=== PATIENT | female | born 1950 | race Caucasian/White ===

== ENCOUNTER 2017-01-05 02:19 | Inpatient (IN) | payer BC ==
[2017-01-05] MEDS ORDERED: Sodium Chloride 0.9% 1,000 ML IV ONE (02:27)
[2017-01-05] MEDS ORDERED: Sodium Chloride 0.9% 10 ML Syringe FLUSH PRN (02:27)
[2017-01-05] MEDS ORDERED: Sodium Chloride 0.9% 2.5 ML Syringe FLUSH PRN (02:27)
[2017-01-05] MEDS ORDERED: Ondansetron 4 MG/2 ML SDV IVPUSH ONE (02:27)
--- NOTE | 2017-01-05 02:30 | EDM.PDOC ---
ED HPI GENERAL MEDICAL PROBLEM - General Stated Complaint: FEELING WEAK Time Seen by Provider: 01/05/17 02:26 - History of Present Illness INITIAL COMMENTS - FREE TEXT/NARRATIVE: HISTORY AND PHYSICAL: History of present illness: Patient 66-year-old white female who presents with certain generalized weakness she states she had anorexia has had no appetite and has been taking minimal fluid she also feels dehydrated this time she denies chest pain abdominal pain nausea vomiting fever chills or other concerns she is seeing her physician for this and is here tonight because she just feels like she can't take it anymore Review of systems: As per history of present illness and below otherwise all systems reviewed and negative. Past medical history: As per history of present illness and as reviewed below otherwise noncontributory. Surgical history: As per history of present illness and as reviewed below otherwise noncontributory. Social history: No reported history of drug or alcohol abuse. Family history: As per history of present illness and as reviewed below otherwise noncontributory. Physical exam: HEENT: Atraumatic, normocephalic, pupils reactive, negative for conjunctival pallor or scleral icterus, mucous membranes dry, throat clear, neck supple, nontender, trachea midline. Lungs: Clear to auscultation, breath sounds equal bilaterally, chest nontender. Heart: S1S2, regular, negative for clicks, rubs, or JVD. Abdomen: Soft, nondistended, nontender. Negative for masses or hepatosplenomegaly. Negative for costovertebral tenderness. Pelvis: Stable nontender. Genitourinary: Deferred. Rectal: Deferred. Extremities: Atraumatic, negative for cords or calf pain. Neurovascular unremarkable. Neuro: Awake, alert, oriented. Cranial nerves II through XII unremarkable. Cerebellum unremarkable. Motor and sensory unremarkable throughout. Exam nonfocal. Diagnostics: CBC CMP troponin PT INR lactic acid lipase chest x-ray CT abdomen and pelvis UA ammonia level Therapeutics: Normal saline 1 L bolus Zofran 4 mg IV Impression: #1 anorexia #2 generalized weakness #3 dehydration Definitive disposition and diagnosis as appropriate pending reevaluation and review of above. - Related Data Allergies Allergy/AdvReac Type Severity Reaction Status Date / Time No Known Allergies Allergy Verified 01/05/17 02:39 Home Meds: Home Meds Hydrocodone/Acetaminophen [Hydrocodon-Acetaminophen 5-325] 1 mg PO ASDIRECTED [History] Ondansetron HCl [Zofran] 4 mg PO TID 01/05/17 [History] Ranitidine [Zantac] 150 mg PO BID 01/05/17 [History] ED ROS GENERAL - Review of Systems Review Of Systems: ROS reveals no pertinent complaints other than HPI. ED EXAM, GENERAL - Physical Exam Exam: See Below (See dictation) Course - Vital Signs Last Recorded V/S: Last Vital Signs Temp 36.2 C 01/05/17 06:37 Pulse 93 01/05/17 06:37 Resp 24 H 01/05/17 06:37 BP 110/62 01/05/17 06:37 Pulse Ox 94 L 01/05/17 06:37 - Orders/Labs/Meds Orders: Active Orders 24 hr Category Date Time Status Cardiac Monitoring [RC] . DIRECTED Care 01/05/17 02:26 Active EKG Documentation Completion [RC] STAT Care 01/05/17 02:26 Active Pulse Oximetry [RC] ASDIRECTED Care 01/05/17 02:26 Active RT Aerosol Therapy [RC] ASDIRECTED Care 01/05/17 03:04 Active Abdomen Pelvis wo Cont [CT] Stat Exams 01/05/17 02:27 Taken Chest 2V [CR] Stat Exams 01/05/17 02:27 Taken CULTURE BLOOD [BC] Stat Lab 01/05/17 03:15 Received CULTURE BLOOD [BC] Stat Lab 01/05/17 04:10 Received CULTURE URINE [RM] Stat Lab 01/05/17 06:39 Received DRUG SCREEN, URINE [URCHEM] Stat Lab 01/05/17 06:39 Received UA W/MICROSCOPIC [URIN] Stat Lab 01/05/17 06:39 Received Sodium Chloride 0.9% [Saline Flush] Med 01/05/17 02:27 Active 10 ml FLUSH ASDIRECTED PRN Sodium Chloride 0.9% [Saline Flush] Med 01/05/17 02:27 Active 2.5 ml FLUSH ASDIRECTED PRN Blood Culture x2 Reflex Set [OM.PC] Stat Oth 01/05/17 03:00 Ordered Saline Lock Insert [OM.PC] Stat Oth 01/05/17 02:26 Ordered Medication Orders Sodium Chloride (Saline Flush) 10 ml FLUSH ASDIRECTED PRN PRN Reason: Keep Vein Open Last Admin: 01/05/17 02:41 Dose: 10 ml Sodium Chloride (Saline Flush) 2.5 ml FLUSH ASDIRECTED PRN PRN Reason: Keep Vein Open Last Admin: 01/05/17 02:41 Dose: 2.5 ml Labs: Laboratory Tests 01/05/17 01/05/17 01/05/17 Range/Units 02:39 02:39 02:39 WBC 18.51 H (4.0-11.0) K/uL RBC 4.50 (4.30-5.90) M/uL Hgb 12.6 (12.0-16.0) g/dL Hct 37.6 (36.0-46.0) % MCV 83.6 (80.0-98.0) fL MCH 28.0 (27.0-32.0) pg MCHC 33.5 (31.0-37.0) g/dL RDW Std Deviation 41.8 (28.0-62.0) fl RDW Coeff of Edy 14 (11.0-15.0) % Plt Count 377 (150-400) K/uL MPV 10.00 (7.40-12.00) fL Neut % (Auto) 74.0 (48.0-80.0) % Lymph % (Auto) 12.2 L (16.0-40.0) % [place] % (Auto) 13.6 (0.0-15.0) % Eos % (Auto) 0.0 (0.0-7.0) % Baso % (Auto) 0.2 (0.0-1.5) % Neut # (Auto) 13.7 H (1.4-5.7) K/uL Lymph # (Auto) 2.3 (0.6-2.4) K/uL [place] # (Auto) 2.5 H (0.0-0.8) K/uL Eos # (Auto) 0.0 (0.0-0.7) K/uL Baso # (Auto) 0.0 (0.0-0.1) K/uL Nucleated RBC % 0.0 /100WBC Nucleated RBCs # 0 K/uL INR (0.86-1.11) ABG pH (7.35-7.45) ABG pCO2 (35-45) mmHG ABG pO2 (75-100) mmHG ABG HCO3 (22-26) mEq/L ABG Total CO2 ABG Base Excess (-2.0-2.0) Lactate (0.20-2.00) mmol/L Sodium 133 L (136-146) mmol/L Potassium 4.1 (3.5-5.1) mmol/L Chloride 98 (98-110) mmol/L Carbon Dioxide 23 (21-31) mmol/L BUN 19 (6.0-23.0) mg/dL Creatinine 1.3 (0.6-1.5) mg/dL Est Cr Clr Drug Dosing 34.28 mL/min Estimated GFR (MDRD) 41.2 ml/min Glucose 141 H (60-110) mg/dL Calcium 9.6 (8.8-10.8) mg/dL Total Bilirubin 0.8 (0.1-1.5) mg/dL AST 50 H (5-40) IU/L ALT 51 (8-54) IU/L Alkaline Phosphatase 92 (40-150) Ammonia (14-68) UG/DL Troponin I (0.0-0.29) NG/ML B-Natriuretic Peptide 145 H (<100) PG/ML Total Protein 8.1 H (6.0-8.0) g/dL Albumin 3.5 (3.4-4.8) g/dL Globulin 4.6 H (2.0-3.5) g/dL Albumin/Globulin Ratio 0.8 L (1.3-2.8) Lipase 20 (7-80) U/L 01/05/17 01/05/17 01/05/17 Range/Units 02:39 02:39 02:39 WBC (4.0-11.0) K/uL RBC (4.30-5.90) M/uL Hgb (12.0-16.0) g/dL Hct (36.0-46.0) % MCV (80.0-98.0) fL MCH (27.0-32.0) pg MCHC (31.0-37.0) g/dL RDW Std Deviation (28.0-62.0) fl RDW Coeff of Edy (11.0-15.0) % Plt Count (150-400) K/uL MPV (7.40-12.00) fL Neut % (Auto) (48.0-80.0) % Lymph % (Auto) (16.0-40.0) % [place] % (Auto) (0.0-15.0) % Eos % (Auto) (0.0-7.0) % Baso % (Auto) (0.0-1.5) % Neut # (Auto) (1.4-5.7) K/uL Lymph # (Auto) (0.6-2.4) K/uL [place] # (Auto) (0.0-0.8) K/uL Eos # (Auto) (0.0-0.7) K/uL Baso # (Auto) (0.0-0.1) K/uL Nucleated RBC % /100WBC Nucleated RBCs # K/uL INR 1.09 (0.86-1.11) ABG pH (7.35-7.45) ABG pCO2 (35-45) mmHG ABG pO2 (75-100) mmHG ABG HCO3 (22-26) mEq/L ABG Total CO2 ABG Base Excess (-2.0-2.0) Lactate 1.2 (0.20-2.00) mmol/L Sodium (136-146) mmol/L Potassium (3.5-5.1) mmol/L Chloride (98-110) mmol/L Carbon Dioxide (21-31) mmol/L BUN (6.0-23.0) mg/dL Creatinine (0.6-1.5) mg/dL Est Cr Clr Drug Dosing mL/min Estimated GFR (MDRD) ml/min Glucose (60-110) mg/dL Calcium (8.8-10.8) mg/dL Total Bilirubin (0.1-1.5) mg/dL AST (5-40) IU/L ALT (8-54) IU/L Alkaline Phosphatase (40-150) Ammonia 40 (14-68) UG/DL Troponin I (0.0-0.29) NG/ML B-Natriuretic Peptide (<100) PG/ML Total Protein (6.0-8.0) g/dL Albumin (3.4-4.8) g/dL Globulin (2.0-3.5) g/dL Albumin/Globulin Ratio (1.3-2.8) Lipase (7-80) U/L 01/05/17 01/05/17 Range/Units 02:39 03:53 WBC (4.0-11.0) K/uL RBC (4.30-5.90) M/uL Hgb (12.0-16.0) g/dL Hct (36.0-46.0) % MCV (80.0-98.0) fL MCH (27.0-32.0) pg MCHC (31.0-37.0) g/dL RDW Std Deviation (28.0-62.0) fl RDW Coeff of Edy (11.0-15.0) % Plt Count (150-400) K/uL MPV (7.40-12.00) fL Neut % (Auto) (48.0-80.0) % Lymph % (Auto) (16.0-40.0) % [place] % (Auto) (0.0-15.0) % Eos % (Auto) (0.0-7.0) % Baso % (Auto) (0.0-1.5) % Neut # (Auto) (1.4-5.7) K/uL Lymph # (Auto) (0.6-2.4) K/uL [place] # (Auto) (0.0-0.8) K/uL Eos # (Auto) (0.0-0.7) K/uL Baso # (Auto) (0.0-0.1) K/uL Nucleated RBC % /100WBC Nucleated RBCs # K/uL INR (0.86-1.11) ABG pH 7.420 (7.35-7.45) ABG pCO2 37 (35-45) mmHG ABG pO2 89 (75-100) mmHG ABG HCO3 24 (22-26) mEq/L ABG Total CO2 22.2 ABG Base Excess -0.2 (-2.0-2.0) Lactate (0.20-2.00) mmol/L Sodium (136-146) mmol/L Potassium (3.5-5.1) mmol/L Chloride (98-110) mmol/L Carbon Dioxide (21-31) mmol/L BUN (6.0-23.0) mg/dL Creatinine (0.6-1.5) mg/dL Est Cr Clr Drug Dosing mL/min Estimated GFR (MDRD) ml/min Glucose (60-110) mg/dL Calcium (8.8-10.8) mg/dL Total Bilirubin (0.1-1.5) mg/dL AST (5-40) IU/L ALT (8-54) IU/L Alkaline Phosphatase (40-150) Ammonia (14-68) UG/DL Troponin I < 0.10 (0.0-0.29) NG/ML B-Natriuretic Peptide (<100) PG/ML Total Protein (6.0-8.0) g/dL Albumin (3.4-4.8) g/dL Globulin (2.0-3.5) g/dL Albumin/Globulin Ratio (1.3-2.8) Lipase (7-80) U/L Meds: Medications Generic Name Dose Route Start Last Admin Trade Name Freq PRN Reason Stop Dose Admin Sodium Chloride 10 ml 01/05/17 02:27 01/05/17 02:41 Saline Flush FLUSH 10 ml ASDIRECTED PRN Administration Keep Vein Open Sodium Chloride 2.5 ml 01/05/17 02:27 01/05/17 02:41 Saline Flush FLUSH 2.5 ml ASDIRECTED PRN Administration Keep Vein Open Discontinued Medications Generic Name Dose Route Start Last Admin Trade Name Freq PRN Reason Stop Dose Admin Acetaminophen 1,000 mg 01/05/17 03:00 01/05/17 05:11 Tylenol PO 01/05/17 03:01 Not Given NOW ONE Acetaminophen 1,000 mg 01/05/17 03:05 01/05/17 03:18 Tylenol Extra Strength PO 01/05/17 03:06 1,000 mg ONETIME ONE Administration Albuterol 2.5 mg 01/05/17 03:04 01/05/17 03:17 Proventil Neb Soln NEB 01/05/17 03:05 2.5 mg ONETIME ONE Administration Sodium Chloride 1,000 mls @ 999 mls/hr 01/05/17 02:27 01/05/17 02:41 Normal Saline IV 01/05/17 03:27 999 mls/hr STAT ONE Administration Levofloxacin/Dextrose 750 mg/ 150 mls @ 100 mls/hr 01/05/17 03:05 01/05/17 04 :58 Premix IV 01/05/17 04:34 100 mls/hr ONETIME ONE Administration Piperacillin Sod/Tazobactam 50 mls @ 100 mls/hr 01/05/17 03:04 01/05/17 04:23 Sod 3.375 gm/ Sodium Chloride IV 01/05/17 03:33 100 mls/hr ONETIME ONE Administration Vancomycin HCl 1 gm/ Sodium 250 mls @ 166 mls/hr 01/05/17 03:04 Chloride IV 01/05/17 04:34 ONETIME ONE Ondansetron HCl 4 mg 01/05/17 02:27 01/05/17 02:41 Zofran IVPUSH 01/05/17 02:28 4 mg ONETIME ONE Administration Departure - Departure Time of Disposition: 06:52 Disposition: Admitted As Inpatient 68 Condition: good Clinical Impression: Pneumonia, Kidney stone - My Orders Last 24 Hours: My Active Orders 01/05/17 02:26 Cardiac Monitoring [RC] . DIRECTED EKG Documentation Completion [RC] STAT Pulse Oximetry [RC] ASDIRECTED Saline Lock Insert [OM.PC] Stat 01/05/17 02:27 Abdomen Pelvis wo Cont [CT] Stat Chest 2V [CR] Stat Sodium Chloride 0.9% [Saline Flush] 10 ml FLUSH ASDIRECTED PRN Sodium Chloride 0.9% [Saline Flush] 2.5 ml FLUSH ASDIRECTED PRN 01/05/17 03:00 Blood Culture x2 Reflex Set [OM.PC] Stat 01/05/17 03:04 RT Aerosol Therapy [RC] ASDIRECTED 01/05/17 03:15 CULTURE BLOOD [BC] Stat 01/05/17 04:10 CULTURE BLOOD [BC] Stat 01/05/17 06:39 CULTURE URINE [RM] Stat DRUG SCREEN, URINE [URCHEM] Stat UA W/MICROSCOPIC [URIN] Stat - Assessment/Plan Last 24 Hours: My Active Orders 01/05/17 02:26 Cardiac Monitoring [RC] . DIRECTED EKG Documentation Completion [RC] STAT Pulse Oximetry [RC] ASDIRECTED Saline Lock Insert [OM.PC] Stat 01/05/17 02:27 Abdomen Pelvis wo Cont [CT] Stat Chest 2V [CR] Stat Sodium Chloride 0.9% [Saline Flush] 10 ml FLUSH ASDIRECTED PRN Sodium Chloride 0.9% [Saline Flush] 2.5 ml FLUSH ASDIRECTED PRN 01/05/17 03:00 Blood Culture x2 Reflex Set [OM.PC] Stat 01/05/17 03:04 RT Aerosol Therapy [RC] ASDIRECTED 01/05/17 03:15 CULTURE BLOOD [BC] Stat 01/05/17 04:10 CULTURE BLOOD [BC] Stat 01/05/17 06:39 CULTURE URINE [RM] Stat DRUG SCREEN, URINE [URCHEM] Stat UA W/MICROSCOPIC [URIN] Stat
[2017-01-05] MEDS ORDERED: Acetaminophen 325 MG Tab PO ONE (03:00)
[2017-01-05] MEDS ORDERED: Piperacillin/Tazobactam 3.375 GM in Sodium Chloride 0.9% 50 ML IV ONE (03:04)
[2017-01-05] MEDS ORDERED: Albuterol 0.083% 2.5 MG/3 ML Neb Soln NEB ONE (03:04)
[2017-01-05] MEDS ORDERED: Levofloxacin/Dextrose 5%-Water 750 MG in Premix Bag 1 BAG IV ONE (03:05)
[2017-01-05] MEDS ORDERED: Acetaminophen 500 MG Tab PO ONE (03:05)
[2017-01-05] MEDS ORDERED: Vancomycin 1 GM AdvVial ONE (06:50)
[2017-01-05] MEDS ORDERED: Sodium Chloride 0.9% 250 ML ONE (06:52)
--- NOTE | 2017-01-05 09:07 | PCM.HP ---
H&P History of Present Illness - General Date of Service: 01/05/17 Admit Problem/Dx: Admission Diagnosis/Problem Admission Diagnosis/Problem Pneumonia Source of Information: Patient History Limitations: Reports: No limitations - History of Present Illness Initial Comments - Free Text/Narative: This 66 year old female with pmh of COPD presented to the ED with a 2 week history of generalized weakness, poor appetite, and cough. She reports she truly hasn't felt 100% since [place] but hasn't been evaluated. She reports productive cough with green phlegm, SOB, poor appetite, fever/chills, nausea and GERD, achey back. She denies any chest pain, palpitations, abdominal pain or diarrhea, no black or bloody stools. She is supposed to take Advair at home, but doesn't. She has no specific reason. She is not oxygen dependent. She did not have her influenza vaccine and thinks she had a pneumonia vaccine a few years ago in [place]. In the ED leukocytosis noteed, 18,510, BMP WNL, Ua + 1 bacteria, with small blood, leukocyte WBC 18-20, negative nitrite, tox screen negative. BC, UC and sputum obtained. CXR revealed bibasilar opacities and abd CT obtained due to pain revealed 5 mm stone near the L UPJ, no significant hydronephrosis, additional non-obstruction left renal stones, bibasilar airspace disease worrisome for pneumonia noted as well. She will be admitted for pneumonia and UTI. Her PCP is Dr. Ruano. neck Pain Score (Numeric/FACES): 4 - Related Data Allergies/Adverse Reactions: Allergies Allergy/AdvReac Type Severity Reaction Status Date / Time No Known Allergies Allergy Verified 01/05/17 02:39 Home Medications: Home Meds Hydrocodone/Acetaminophen [Hydrocodon-Acetaminophen 5-325] 5 - 325 mg PO Q6H PRN 01/05/17 [History] Ondansetron HCl [Zofran] 4 mg PO TID 01/05/17 [History] Ranitidine [Zantac] 150 mg PO BID 01/05/17 [History] Past Medical History - Past Health History Medical/Surgical History: Denies Medical/Surgical History HEENT History: Reports: Impaired vision Cardiovascular History: Reports: Hypertension (not currently taking medications) . Denies: Afib, Blood clots/VTE/DVT, CAD, Heart Failure, High cholesterol, [place] Respiratory History: Reports: COPD, SOB Gastrointestinal History: Reports: Other (see below) Other Gastrointestinal History: stomach upset Genitourinary History: Reports: Urinary incontinence [employer]IST History: Reports: , Other (see below) Other OB/BYN History: tubal removal Musculoskeletal History: Reports: Neck pain, chronic - Infectious Disease History Infectious Disease History: Reports: Measles - Past Surgical History HEENT Surgical History: Reports: Tonsillectomy Cardiovascular Surgical History: Reports: None GI Surgical History: Reports: None Female Surgical History: Reports: Tubal ligation, Other (see below) Other Female Surgeries/Procedures: Tubes removed but not ovaries Musculoskeletal Surgical History: Reports: Carpal tunnel Social & Family History - Family History Family Medical History: Noncontributory HEENT: Reports: Cataract Cardiac: Reports: Heart failure, Hypertension, [place], Prior cardiac arrest Musculoskeletal: Reports: Arthritis, Back pain, chronic, Osteoporosis Endocrine/Metabolic: Reports: Diabetes, type II, IDDM Oncologic: Reports: Breast, Ovarian - Tobacco Use Smoking Status *Q: Current Every Day Smoker Years of Tobacco use: 50 Packs/Tins Daily: 1 Used Tobacco, but Quit: No Tobacco Use Comment: has not smokes in over a week due to illness. Smoking Cessation Information Provided To Patient: Yes (will order) - Caffeine Use Caffeine Use: Reports: Coffee Caffeine Use Comment: One to two cups a day - Recreational Drug Use Recreational Drug Use: No - Living Situation & Occupation Living situation: Reports: H&P Review of Systems - Review of Systems: Review Of Systems: See Below General: Reports: fever, chills, malaise, fatigue, decreased appetite HEENT: Reports: no symptoms Pulmonary: Reports: Shortness of Breath, Wheezing, Cough, Sputum Cardiovascular: Denies: chest pain, palpitations, edema Gastrointestinal: Reports: Decreased appetite, Nausea. Denies: Abdominal pain, Black stool, Bloody stool, Constipation, Flatus, Vomiting Genitourinary: Reports: flank pain. Denies: dysuria, frequency, burning Skin: Reports: no symptoms Psychiatric: Reports: no symptoms Neurological: Reports: No Symptoms Hematologic/Lymphatic: Reports: no symptoms Immunologic: Reports: no symptoms Exam - Exam Exam: See Below - Vital Signs Vital Signs: Last Vital Signs Temp 97.2 F 01/05/17 07:58 Pulse 88 01/05/17 07:58 Resp 20 01/05/17 07:58 BP 108/60 01/05/17 07:58 Pulse Ox 95 01/05/17 07:58 Weight: 75.75 kg - Exam Quality Assessment: supplemental oxygen, DVT prophylaxis General: alert, oriented, 4 HEENT: Conjunctiva clear, EACs clear, EOMI, Hearing intact, Mucosa moist & pink , Nares patent, Posterior pharynx clear Neck: supple, trachea midline, full range of motion. No: lymphadenopathy Lungs: Normal respiratory effort, Decreased breath sounds Cardiovascular: regular rate, regular rhythm, normal S1, normal S2 Abdomen: normal bowel sounds, soft Extremities: normal inspection, normal pulses. No: calf tenderness, edema Peripheral Pulses: 2+: posterior tibial (L), posterior tibial (R), dorsalis pedis (L), dorsalis pedis (R) Skin: warm, dry, intact Neuro Extensive - Mental Status: alert, oriented x3, normal mood/affect, normal cognition Neuro Extensive - Motor, Sensory, Reflexes: CN II-XII intact, normal gait, normal reflexes Psychiatric: alert, normal affect, normal mood - Patient Data Result Diagrams: 01/05/17 02:39 01/05/17 02:39 *Q Meaningful Use (ADM) - VTE *Q VTE Criteria *Q: - VTE Risk Assess *Q Each Risk Factor Represents 1 Point: Serious Lung Disease Including Pneumonia, Less than 1 Month, Abnormal Pulmonary Function (COPD) Total Score 1 Point Risk Factors: 2 Each Risk Factor Represents 2 Points: Age 60 - 74 Years Total Score 2 Point Risk Factors: 2 Each Risk Factor Represents 3 Points: None Total Score 3 Point Risk Factors: 0 Each Risk Factor Represents 5 Points: None Total Score 5 Point Risk Factors: 0 Venous Thromboembolism Risk Factor Score *Q: 4 - Stroke *Q Stroke Criteria *Q: - AMI *Q AMI Criteria *Q: - Problem List (1) Pneumonia SNOMED Code(s): 968754024 ICD Code: J18.9 - PNEUMONIA, UNSPECIFIED ORGANISM Status: Acute Current Visit: Yes Qualifiers: Pneumonia type: due to unspecified organism Laterality: bilateral Lung location: lower lobe of lung Qualified Code(s): J18.9 - Pneumonia, unspecified organism (2) UTI (urinary tract infection) SNOMED Code(s): 09734874 ICD Code: N39.0 - URINARY TRACT INFECTION, SITE NOT SPECIFIED Status: Acute Current Visit: Yes (3) Kidney stone SNOMED Code(s): 43614349 ICD Code: N20.0 - CALCULUS OF KIDNEY Status: Acute Current Visit: Yes (4) COPD (chronic obstructive pulmonary disease) SNOMED Code(s): 93969184 ICD Code: J44.9 - CHRONIC OBSTRUCTIVE PULMONARY DISEASE, UNSPECIFIED Status : Chronic Current Visit: Yes Qualifiers: COPD type: unspecified COPD Qualified Code(s): J44.9 - Chronic obstructive pulmonary disease, unspecified Problem List Initiated/Reviewed/Updated: Yes Orders Last 24hrs: Active Orders 24 hr Category Date Time Status Regular Diet [DIET] Diet 01/05/17 Lunch Active Flu Vaccine (36Mos+)/PF [Fluzone/Fluarix Med 01/09/17 23:59 Once Vaccine] 60 mcg IM .ONCE ONE Medication Orders Influenza Virus Vaccine (Fluzone/Fluarix Vaccine) 60 mcg IM .ONCE ONE Stop: 01/10/17 00:00 Sodium Chloride (Saline Flush) 10 ml FLUSH ASDIRECTED PRN PRN Reason: Keep Vein Open Last Admin: 01/05/17 02:41 Dose: 10 ml Sodium Chloride (Saline Flush) 2.5 ml FLUSH ASDIRECTED PRN PRN Reason: Keep Vein Open Last Admin: 01/05/17 02:41 Dose: 2.5 ml Assessment/Plan Comment:: This 66 year old female admitted with pneumonia and UTI 1. Pneumonia: Will continue Levaquin IV daily. Duonebs, oxygen PRN. BC and sputum pending. 2. UTI: Add Rocephin. UC pending. 3. Renal stones: Consulted Dr. Hernández, recommended to treat infection and have her follow up as outpatient. 4. COPD: Restart Advair. Continue Duonebs. No need for Solu-medrol at this time , will reassess in am VTE: Lovenox Dispo: 2-4 days pending improvement
[2017-01-05] MEDS ORDERED: Albuterol 0.083% 2.5 MG/3 ML Neb Soln NEB PRN (11:47)
[2017-01-05] MEDS ORDERED: Ondansetron 4 MG/2 ML SDV IVPUSH PRN (11:47)
[2017-01-05] MEDS ORDERED: Albuterol/Ipratropium 3.0-0.5 MG/3 ML Neb Soln NEB PRN (11:47)
[2017-01-05] MEDS: Sodium Chloride 0.9% 1,000 ML IV SCH ×2 (12:59→21:54)
[2017-01-05] MEDS: Enoxaparin 40 MG/0.4 ML Syringe SUBCUT SCH (13:00)
[2017-01-05] MEDS: cefTRIAXone 1 GM in Premix Bag 1 BAG IV SCH (13:00)
[2017-01-05] MEDS: Fluticasone/Salmeterol 250-50 MCG Inhalation Powder 14/Diskus INH SCH ×2 (17:36→20:12)
[2017-01-05] MEDS ORDERED: Albuterol/Ipratropium 3.0-0.5 MG/3 ML Neb Soln NEB SCH (18:00)
--- NOTE | 2017-01-05 19:40 | CR ---
EXAM DATE: 01/05/17 PATIENT'S AGE: 66 Patient: RAFFI RAINES Facility: [place], [place] Site . Site : 1950 Study: XRay Chest [id number]/27/2017 3:51:59 AM Ordering Physician: Kanika Vuong Final Report: INDICATIONS: Shortness of breath. Pain. Cough. Congestion x2 weeks. TECHNIQUE: Chest 2 view. COMPARISON: Chest radiograph September 23, 2013. FINDINGS: No pneumothorax or pleural effusion. There are new bibasilar opacities. Cardiac and mediastinal contours are within normal limits. Upper abdomen and osseous structures show no acute abnormality. IMPRESSION: Bibasilar opacities, worrisome for pneumonia. Dictated by Jamari Flores MD @ 01/05/2017 3:56:00 AM Dictated by: Jamari Flores MD @ 01/05/2017 03:56:11 (Electronic Signature) Report Signed by Proxy and Original Signed Document filed in the Medical Record. [facility]TD[facility]
--- NOTE | 2017-01-05 19:42 | CT ---
EXAM DATE: 01/05/17 PATIENT'S AGE: 66 Patient: RAFFI RAINES Facility: [place], [place] Site . Site : 1950 Study: CT Abdomen/Pelvis [id number]/27/2017 3:58:36 AM Ordering Physician: Kanika Vuong Final Report: INDICATION: Pain. TECHNIQUE: CT abdomen and pelvis acquired without contrast. COMPARISON: Chest radiograph same day. Chest CT December 13, 2014. FINDINGS: Lower chest: Multiple new irregular nodular opacities at the bilateral lung bases. Air space disease involves the visualized right middle lobe, lingula and both lower lobes. No pleural or pericardial effusions. Liver: Unremarkable. Spleen: Unremarkable. Pancreas: Unremarkable. Gallbladder and bile ducts: Unremarkable. Kidneys: There is a 5 mm stone near the left ureteropelvic junction. No significant hydroureteronephrosis. Additional nonobstructing left lower pole renal stones. Right kidney is unremarkable. Adrenal glands: Unremarkable. GI tract: No bowel obstruction or inflammatory changes. The appendix is normal. No free air or free fluid. Vascular structures: Atherosclerotic disease. No abdominal aortic aneurysm. Lymph nodes: Unremarkable. Pelvic Organs: Unremarkable. Bones: No acute abnormality. IMPRESSION: A 5 mm stone near the left ureteropelvic junction. No significant hydronephrosis. Additional nonobstructing left renal stones. Bibasilar airspace disease, worrisome for pneumonia. Dictated by Jamari Flores MD @ 01/05/2017 4:09:04 AM Dictated by: Jamari Flores MD @ 01/05/2017 04:09:32 (Electronic Signature) Report Signed by Proxy and Original Signed Document filed in the Medical Record. [facility]
[2017-01-05] MEDS: Acetaminophen 325 MG Tab PO PRN (21:56)
[2017-01-05] MEDS: Benzonatate 100 MG Cap PO SCH (21:56)
[2017-01-05] MEDS: Albuterol/Ipratropium 3.0-0.5 MG/3 ML Neb Soln NEB SCH (23:26)
[2017-01-06] MEDS: Albuterol/Ipratropium 3.0-0.5 MG/3 ML Neb Soln NEB SCH ×5 (05:58→23:31)
[2017-01-06] MEDS ORDERED: Levofloxacin/Dextrose 5%-Water 750 MG in Premix Bag 1 BAG IV SCH (06:00)
[2017-01-06] MEDS: Benzonatate 100 MG Cap PO SCH ×3 (06:53→23:16)
[2017-01-06] MEDS: Enoxaparin 40 MG/0.4 ML Syringe SUBCUT SCH (09:05)
[2017-01-06] MEDS: Sodium Chloride 0.9% 1,000 ML IV SCH (09:26)
[2017-01-06] MEDS: Fluticasone/Salmeterol 250-50 MCG Inhalation Powder 14/Diskus INH SCH (10:40)
--- NOTE | 2017-01-06 10:48 | PCM.PN ---
- General Info Date of Service: 01/06/17 Admission Dx/Problem (Free Text): Admission Diagnosis/Problem Admission Diagnosis/Problem Pneumonia Subjective Update: Feeling slightly improved today, was able to sleep last night without much coughing. Continues to cough green to yellow sputum. Feels like appetite is improving. Continues to deny chest pain or abdominal pain. SOB continues, but is improving. Feels very jittery from nebulizers Functional Status: Reports: pain controlled, tolerating diet, ambulating, urinating - Review of Systems General: Reports: Malaise (improving). Denies: Fever Pulmonary: Reports: shortness of breath, cough, sputum. Denies: pleuritic chest pain, wheezing Cardiovascular: Reports: No Symptoms. Denies: Chest Pain, Palpitations, Edema Gastrointestinal: Reports: No symptoms. Denies: Abdominal pain, Nausea, Vomiting Genitourinary: Reports: no symptoms. Denies: dysuria, frequency, burning, flank pain Musculoskeletal: Reports: no symptoms Skin: Reports: no symptoms Neurological: Reports: No Symptoms Psychiatric: Reports: no symptoms - Patient Data Vitals - most recent: Last Vital Signs Temp 99.3 F 01/06/17 07:52 Pulse 89 01/06/17 07:52 Resp 20 01/06/17 07:52 BP 142/67 H 01/06/17 07:52 Pulse Ox 90 L 01/06/17 07:52 Weight - most recent: 75.75 kg I&O - last 24 hours: Intake & Output 01/05/17 01/06/17 01/06/17 22:59 06:59 14:59 Intake Total 2290 800 150 Output Total 500 550 Balance 1790 250 150 Lab Results last 24 hrs: Laboratory Results - last 24 hr 01/06/17 01/06/17 Range/Units 04:44 04:44 WBC 15.90 H (4.0-11.0) K/uL RBC 4.05 L (4.30-5.90) M/uL Hgb 11.2 L (12.0-16.0) g/dL Hct 33.8 L (36.0-46.0) % MCV 83.5 (80.0-98.0) fL MCH 27.7 (27.0-32.0) pg MCHC 33.1 (31.0-37.0) g/dL RDW Std Deviation 40.2 (28.0-62.0) fl RDW Coeff of Edy 14 (11.0-15.0) % Plt Count 324 (150-400) K/uL MPV 10.40 (7.40-12.00) fL Add Manual Diff YES Neutrophils % (Manual) 73 (48.0-80.0) % Band Neutrophils % 3 % Lymphocytes % (Manual) 13 L (16.0-40.0) % Monocytes % (Manual) 11 (0.0-15.0) % Absolute Seg Neuts 11.6 Band Neutrophils # 0.5 Lymphocytes # (Manual) 2.1 Monocytes # (Manual) 1.7 Nucleated RBCs 1 % Sodium 138 (136-146) mmol/L Potassium 3.8 (3.5-5.1) mmol/L Chloride 107 (98-110) mmol/L Carbon Dioxide 20 L (21-31) mmol/L BUN 12 (6.0-23.0) mg/dL Creatinine 1.0 (0.6-1.5) mg/dL Est Cr Clr Drug Dosing 44.95 mL/min Estimated GFR (MDRD) 55.8 ml/min Glucose 100 (60-110) mg/dL Calcium 8.5 L (8.8-10.8) mg/dL Donnell Results last 24 hrs: Microbiology 01/05/17 15:00 Gram Stain - Preliminary Sputum - Expectorated Med Orders - Current: Current Medications Acetaminophen (Tylenol) 650 mg PO Q4H PRN PRN Reason: Fever Last Admin: 01/05/17 21:56 Dose: 650 mg Albuterol (Proventil Neb Soln) 2.5 mg NEB Q2HR PRN PRN Reason: Shortness Of Breath/wheezing Albuterol/Ipratropium (Duoneb 3.0-0.5 Mg/3 Ml) 3 ml NEB Q6HRRT [facility] Last Admin: 01/06/17 05:58 Dose: 3 ml Benzonatate (Tessalon Perles) 200 mg PO TID [facility] Last Admin: 01/06/17 06:53 Dose: 200 mg Enoxaparin Sodium (Lovenox) 40 mg SUBCUT DAILY [facility] Last Admin: 01/06/17 09:05 Dose: 40 mg Levofloxacin/Dextrose 750 mg/ (Premix) 150 mls @ 100 mls/hr IV Q48H [facility] Last Admin: 01/06/17 05:36 Dose: 100 mls/hr Sodium Chloride (Normal Saline) 1,000 mls @ 125 mls/hr IV ASDIRECTED [facility] Last Admin: 01/06/17 09:26 Dose: 125 mls/hr Ceftriaxone Sodium/Dextrose 1 (gm/ Premix) 50 mls @ 100 mls/hr IV Q24H [facility] Last Admin: 01/05/17 13:00 Dose: 100 mls/hr Influenza Virus Vaccine (Fluzone/Fluarix Vaccine) 60 mcg IM .ONCE ONE Stop: 01/10/17 00:00 Ondansetron HCl (Zofran) 4 mg IVPUSH Q4H PRN PRN Reason: Nausea Fluticasone/Salmeterol (Advair Diskus 250-50) 1 puff INH BID [facility] Last Admin: 01/06/17 10:40 Dose: 1 puff Sodium Chloride (Saline Flush) 10 ml FLUSH ASDIRECTED PRN PRN Reason: Keep Vein Open Last Admin: 01/05/17 02:41 Dose: 10 ml Sodium Chloride (Saline Flush) 2.5 ml FLUSH ASDIRECTED PRN PRN Reason: Keep Vein Open Last Admin: 01/05/17 02:41 Dose: 2.5 ml Discontinued Medications Acetaminophen (Tylenol) 1,000 mg PO NOW ONE Stop: 01/05/17 03:01 Last Admin: 01/05/17 05:11 Dose: Not Given Acetaminophen (Tylenol Extra Strength) 1,000 mg PO ONETIME ONE Stop: 01/05/17 03:06 Last Admin: 01/05/17 03:18 Dose: 1,000 mg Albuterol (Proventil Neb Soln) 2.5 mg NEB ONETIME ONE Stop: 01/05/17 03:05 Last Admin: 01/05/17 03:17 Dose: 2.5 mg Albuterol/Ipratropium (Duoneb 3.0-0.5 Mg/3 Ml) 3 ml NEB Q4HRRT PRN PRN Reason: Shortness Of Breath/wheezing Albuterol/Ipratropium (Duoneb 3.0-0.5 Mg/3 Ml) 3 ml NEB Q4HRRT [facility] Last Admin: 01/05/17 17:35 Dose: 3 ml Sodium Chloride (Normal Saline) 1,000 mls @ 999 mls/hr IV STAT ONE Stop: 01/05/17 03:27 Last Admin: 01/05/17 02:41 Dose: 999 mls/hr Levofloxacin/Dextrose 750 mg/ (Premix) 150 mls @ 100 mls/hr IV ONETIME ONE Stop: 01/05/17 04:34 Last Admin: 01/05/17 04:58 Dose: 100 mls/hr Piperacillin Sod/Tazobactam (Sod 3.375 gm/ Sodium Chloride) 50 mls @ 100 mls/ hr IV ONETIME ONE Stop: 01/05/17 03:33 Last Admin: 01/05/17 04:23 Dose: 100 mls/hr Vancomycin HCl 1 gm/ Sodium (Chloride) 250 mls @ 166 mls/hr IV ONETIME ONE Stop: 01/05/17 04:34 Last Admin: 01/05/17 07:01 Dose: 166 mls/hr Sodium Chloride (Normal Saline) Confirm Administered Dose 250 mls @ as directed .ROUTE .STK-MED ONE Stop: 01/05/17 06:53 Last Admin: 01/05/17 07:02 Dose: Not Given Ondansetron HCl (Zofran) 4 mg IVPUSH ONETIME ONE Stop: 01/05/17 02:28 Last Admin: 01/05/17 02:41 Dose: 4 mg Vancomycin HCl (Vancocin) Confirm Administered Dose 1 gm .ROUTE .STK-MED ONE Stop: 01/05/17 06:51 Last Admin: 01/05/17 07:01 Dose: Not Given - Exam Quality Assessment: supplemental oxygen, DVT prophylaxis General: alert, oriented, cooperative HEENT: Pupils equal, Pupils reactive, EOMI, Mucous membr. moist/pink Neck: supple Lungs: Clear to auscultation, Normal respiratory effort, Decreased breath sounds Cardiovascular: Regular Rate, Regular Rhythm Extremities: no edema, normal pulses, no tenderness/swelling Neurological: no new focal deficit Psy/Mental Status: alert, normal affect, normal mood - Problem List & Annotations (1) Pneumonia SNOMED Code(s): 087553664 Code(s): J18.9 - PNEUMONIA, UNSPECIFIED ORGANISM Status: Acute Current Visit: Yes Qualifiers: Pneumonia type: due to unspecified organism Laterality: bilateral Lung location: lower lobe of lung Qualified Code(s): J18.9 - Pneumonia, unspecified organism (2) UTI (urinary tract infection) SNOMED Code(s): 90317870 Code(s): N39.0 - URINARY TRACT INFECTION, SITE NOT SPECIFIED Status: Acute Current Visit: Yes (3) Kidney stone SNOMED Code(s): 16528259 Code(s): N20.0 - CALCULUS OF KIDNEY Status: Acute Current Visit: Yes (4) COPD (chronic obstructive pulmonary disease) SNOMED Code(s): 64672881 Code(s): J44.9 - CHRONIC OBSTRUCTIVE PULMONARY DISEASE, UNSPECIFIED Status : Chronic Current Visit: Yes Qualifiers: COPD type: unspecified COPD Qualified Code(s): J44.9 - Chronic obstructive pulmonary disease, unspecified - Problem List Review Problem List Initiated/Reviewed/Updated: Yes - My Orders Last 24 Hours: My Active Orders 01/05/17 11:47 Oxygen Therapy [RC] PRN Up to Chair [RC] ASDIRECTED VTE/DVT Education [RC] PER UNIT ROUTINE Vital Signs [RC] Q4H Albuterol [Proventil Neb Soln] 2.5 mg NEB Q2HR PRN Ondansetron [Zofran] 4 mg IVPUSH Q4H PRN Resuscitation Status Routine 01/05/17 11:48 Intake and Output [RC] QSHIFT 01/05/17 11:49 RT Aerosol Therapy [RC] ASDIRECTED 01/05/17 12:00 Enoxaparin [Lovenox] 40 mg SUBCUT DAILY Sodium Chloride 0.9% [Normal Saline] 1,000 ml IV ASDIRECTED cefTRIAXone [Rocephin in Dextrose,Iso-Osm 1 GM/50 ML] 1 gm Premix Bag 1 bag IV Q24H 01/05/17 13:15 RT Post Treatment Assessment [RC] Click To Edit RT Pre-Treatment Assessment [RC] Click To Edit Fluticasone/Salmeterol [Advair Diskus 250-50] 1 puff INH BID 01/05/17 15:00 CULTURE SPUTUM + SMEAR [RM] Stat 01/06/17 06:00 Levofloxacin/Dextrose 5%-Water [Levaquin in D5W 750 MG/150 ML] 750 mg Premix Bag 1 bag IV Q48H 01/07/17 05:11 BASIC METABOLIC PANEL,BMP [CHEM] AM CBC WITH AUTO DIFF [HEME] AM 01/08/17 05:11 BASIC METABOLIC PANEL,BMP [CHEM] AM CBC WITH AUTO DIFF [HEME] AM - Plan Plan:: This 66 year old female admitted with pneumonia and UTI 1. Pneumonia: Continue Levaquin IV daily. leukocytosis improving. Duonebs, oxygen PRN. BC and sputum pending. 2. UTI: Continue Rocephin. UC pending. 3. Renal stones: Consulted Dr. Hernández, recommended to treat infection and have her follow up as outpatient. 4. COPD:Continue Duonebs. She dislikes Advair and steroids, will discontinue and start Serevent inh BID. Did decrease frequency of Duonebs due to jitteriness , added Tessalon pearls overnight to help with cough and sleep. VTE: Lovenox Dispo: 2-4 days pending improvement
[2017-01-06] MEDS: cefTRIAXone 1 GM in Premix Bag 1 BAG IV SCH (13:17)
[2017-01-06] MEDS: Salmeterol Xinafoate 50 Mcg 28 Puff/Diskus INH SCH (21:42)
[2017-01-07] MEDS: Acetaminophen 325 MG Tab PO PRN ×2 (03:03→13:21)
[2017-01-07 05:44] LABS: CHLORIDE,CL 106 mmol/L (98-110); SODIUM,NA 137 mmol/L (136-146)
[2017-01-07] MEDS: Albuterol/Ipratropium 3.0-0.5 MG/3 ML Neb Soln NEB SCH (05:58)
[2017-01-07] MEDS: Benzonatate 100 MG Cap PO SCH ×3 (06:24→23:53)
[2017-01-07] MEDS ORDERED: Albuterol/Ipratropium 3.0-0.5 MG/3 ML Neb Soln NEB PRN (08:27)
[2017-01-07] MEDS ORDERED: Calcium Carbonate 500 MG Tab.Chew PO ONE (08:32)
[2017-01-07] MEDS: Enoxaparin 40 MG/0.4 ML Syringe SUBCUT SCH (09:56)
[2017-01-07] MEDS: Levofloxacin/Dextrose 5%-Water 750 MG in Premix Bag 1 BAG IV SCH (09:57)
[2017-01-07] MEDS: Salmeterol Xinafoate 50 Mcg 28 Puff/Diskus INH SCH ×2 (10:04→21:50)
--- NOTE | 2017-01-07 10:26 | PCM.PN ---
- General Info Date of Service: 01/07/17 Admission Dx/Problem (Free Text): Admission Diagnosis/Problem Admission Diagnosis/Problem Pneumonia Subjective Update: Continuing to improve today, feels better after discontinuing Advair. Continues to cough green to yellow sputum. Feels like appetite is improving. Continues to deny chest pain or abdominal pain. SOB continues, but is improving. Feels very jittery from nebulizers Functional Status: Reports: pain controlled, tolerating diet, ambulating, urinating - Review of Systems General: Reports: No Symptoms HEENT: Reports: no symptoms Pulmonary: Reports: shortness of breath (continues to improve), cough, sputum ( lightening up in color and less coming out.) Cardiovascular: Reports: No Symptoms. Denies: Chest Pain, Edema Gastrointestinal: Reports: No symptoms. Denies: Abdominal pain, Nausea, Vomiting Musculoskeletal: Reports: no symptoms Skin: Reports: no symptoms Neurological: Reports: No Symptoms Psychiatric: Reports: no symptoms - Patient Data Vitals - most recent: Last Vital Signs Temp 98.1 F 01/07/17 04:00 Pulse 84 01/07/17 04:00 Resp 20 01/07/17 04:00 BP 138/58 L 01/07/17 04:00 Pulse Ox 93 L 01/07/17 04:00 Weight - most recent: 75.75 kg I&O - last 24 hours: Intake & Output 01/06/17 01/07/17 01/07/17 22:59 06:59 14:59 Intake Total 1400 800 Output Total 500 1500 Balance 900 -700 Lab Results last 24 hrs: Laboratory Results - last 24 hr 01/07/17 01/07/17 Range/Units 04:40 04:40 WBC 13.61 H (4.0-11.0) K/uL RBC 3.79 L (4.30-5.90) M/uL Hgb 10.2 L (12.0-16.0) g/dL Hct 31.6 L (36.0-46.0) % MCV 83.4 (80.0-98.0) fL MCH 26.9 L (27.0-32.0) pg MCHC 32.3 (31.0-37.0) g/dL RDW Std Deviation 42.3 (28.0-62.0) fl RDW Coeff of Edy 14 (11.0-15.0) % Plt Count 328 (150-400) K/uL MPV 9.80 (7.40-12.00) fL Add Manual Diff YES Neutrophils % (Manual) 67 (48.0-80.0) % Band Neutrophils % 1 % Lymphocytes % (Manual) 25 (16.0-40.0) % Monocytes % (Manual) 6 (0.0-15.0) % Basophils % (Manual) 1 (0.0-1.5) % Nucleated RBC % 0.0 /100WBC Absolute Seg Neuts 9.1 Band Neutrophils # 0.1 Lymphocytes # (Manual) 3.4 Monocytes # (Manual) 0.8 Basophils # (Manual) 0 Nucleated RBCs # 0 K/uL Sodium 137 (136-146) mmol/L Potassium 3.7 (3.5-5.1) mmol/L Chloride 106 (98-110) mmol/L Carbon Dioxide 22 (21-31) mmol/L BUN 8 (6.0-23.0) mg/dL Creatinine 0.9 (0.6-1.5) mg/dL Est Cr Clr Drug Dosing 49.95 mL/min Estimated GFR (MDRD) > 60.0 ml/min Glucose 99 (60-110) mg/dL Calcium 8.3 L (8.8-10.8) mg/dL Donnell Results last 24 hrs: Microbiology 01/05/17 15:00 Gram Stain - Final Sputum - Expectorated Med Orders - Current: Current Medications Acetaminophen (Tylenol) 650 mg PO Q4H PRN PRN Reason: Fever Last Admin: 01/07/17 03:03 Dose: 650 mg Albuterol (Proventil Neb Soln) 2.5 mg NEB Q2HR PRN PRN Reason: Shortness Of Breath/wheezing Albuterol/Ipratropium (Duoneb 3.0-0.5 Mg/3 Ml) 3 ml NEB Q6HRRT PRN PRN Reason: SOB/wheezing Benzonatate (Tessalon Perles) 200 mg PO TID [facility] Last Admin: 01/07/17 06:24 Dose: 200 mg Enoxaparin Sodium (Lovenox) 40 mg SUBCUT DAILY [facility] Last Admin: 01/07/17 09:56 Dose: 40 mg Ceftriaxone Sodium/Dextrose 1 (gm/ Premix) 50 mls @ 100 mls/hr IV Q24H [facility] Last Admin: 01/06/17 13:17 Dose: 100 mls/hr Levofloxacin/Dextrose 750 mg/ (Premix) 150 mls @ 100 mls/hr IV Q24H [facility] Last Admin: 01/07/17 09:57 Dose: 100 mls/hr Influenza Virus Vaccine (Fluzone/Fluarix Vaccine) 60 mcg IM .ONCE ONE Stop: 01/10/17 00:00 Ondansetron HCl (Zofran) 4 mg IVPUSH Q4H PRN PRN Reason: Nausea Salmeterol Xinafoate (Serevent Diskus) 50 puff INH BID [facility] Last Admin: 01/07/17 10:04 Dose: 1 mcg Sodium Chloride (Saline Flush) 10 ml FLUSH ASDIRECTED PRN PRN Reason: Keep Vein Open Last Admin: 01/05/17 02:41 Dose: 10 ml Sodium Chloride (Saline Flush) 2.5 ml FLUSH ASDIRECTED PRN PRN Reason: Keep Vein Open Last Admin: 01/05/17 02:41 Dose: 2.5 ml Discontinued Medications Acetaminophen (Tylenol) 1,000 mg PO NOW ONE Stop: 01/05/17 03:01 Last Admin: 01/05/17 05:11 Dose: Not Given Acetaminophen (Tylenol Extra Strength) 1,000 mg PO ONETIME ONE Stop: 01/05/17 03:06 Last Admin: 01/05/17 03:18 Dose: 1,000 mg Albuterol (Proventil Neb Soln) 2.5 mg NEB ONETIME ONE Stop: 01/05/17 03:05 Last Admin: 01/05/17 03:17 Dose: 2.5 mg Albuterol/Ipratropium (Duoneb 3.0-0.5 Mg/3 Ml) 3 ml NEB Q4HRRT PRN PRN Reason: Shortness Of Breath/wheezing Albuterol/Ipratropium (Duoneb 3.0-0.5 Mg/3 Ml) 3 ml NEB Q4HRRT [facility] Last Admin: 01/05/17 17:35 Dose: 3 ml Albuterol/Ipratropium (Duoneb 3.0-0.5 Mg/3 Ml) 3 ml NEB Q6HRRT [facility] Last Admin: 01/07/17 05:58 Dose: Not Given Calcium Carbonate/Glycine (Tums) 1,000 mg PO ONETIME ONE Stop: 01/07/17 08:33 Last Admin: 01/07/17 09:56 Dose: 1,000 mg Sodium Chloride (Normal Saline) 1,000 mls @ 999 mls/hr IV STAT ONE Stop: 01/05/17 03:27 Last Admin: 01/05/17 02:41 Dose: 999 mls/hr Levofloxacin/Dextrose 750 mg/ (Premix) 150 mls @ 100 mls/hr IV ONETIME ONE Stop: 01/05/17 04:34 Last Admin: 01/05/17 04:58 Dose: 100 mls/hr Piperacillin Sod/Tazobactam (Sod 3.375 gm/ Sodium Chloride) 50 mls @ 100 mls/ hr IV ONETIME ONE Stop: 01/05/17 03:33 Last Admin: 01/05/17 04:23 Dose: 100 mls/hr Vancomycin HCl 1 gm/ Sodium (Chloride) 250 mls @ 166 mls/hr IV ONETIME ONE Stop: 01/05/17 04:34 Last Admin: 01/05/17 07:01 Dose: 166 mls/hr Sodium Chloride (Normal Saline) Confirm Administered Dose 250 mls @ as directed .ROUTE .STK-MED ONE Stop: 01/05/17 06:53 Last Admin: 01/05/17 07:02 Dose: Not Given Levofloxacin/Dextrose 750 mg/ (Premix) 150 mls @ 100 mls/hr IV Q48H [facility] Last Admin: 01/06/17 05:36 Dose: 100 mls/hr Sodium Chloride (Normal Saline) 1,000 mls @ 125 mls/hr IV ASDIRECTED [facility] Stop: 01/06/17 18:00 Last Admin: 01/06/17 09:26 Dose: 125 mls/hr Ondansetron HCl (Zofran) 4 mg IVPUSH ONETIME ONE Stop: 01/05/17 02:28 Last Admin: 01/05/17 02:41 Dose: 4 mg Fluticasone/Salmeterol (Advair Diskus 250-50) 1 puff INH BID [facility] Last Admin: 01/06/17 10:40 Dose: 1 puff Vancomycin HCl (Vancocin) Confirm Administered Dose 1 gm .ROUTE .STK-MED ONE Stop: 01/05/17 06:51 Last Admin: 01/05/17 07:01 Dose: Not Given - Exam Quality Assessment: supplemental oxygen, DVT prophylaxis General: alert, oriented, cooperative HEENT: Pupils equal, Pupils reactive, EOMI, Mucous membr. moist/pink Neck: supple Lungs: Clear to auscultation, Normal respiratory effort Cardiovascular: Regular Rate, Regular Rhythm Abdomen: bowel sounds present, soft, no tenderness, no distension Extremities: no edema, normal pulses Neurological: no new focal deficit Psy/Mental Status: alert, normal affect, normal mood - Problem List & Annotations (1) Pneumonia SNOMED Code(s): 393550043 Code(s): J18.9 - PNEUMONIA, UNSPECIFIED ORGANISM Status: Acute Current Visit: Yes Qualifiers: Pneumonia type: due to unspecified organism Laterality: bilateral Lung location: lower lobe of lung Qualified Code(s): J18.9 - Pneumonia, unspecified organism (2) UTI (urinary tract infection) SNOMED Code(s): 20918872 Code(s): N39.0 - URINARY TRACT INFECTION, SITE NOT SPECIFIED Status: Acute Current Visit: Yes (3) Kidney stone SNOMED Code(s): 20055735 Code(s): N20.0 - CALCULUS OF KIDNEY Status: Acute Current Visit: Yes (4) COPD (chronic obstructive pulmonary disease) SNOMED Code(s): 90087859 Code(s): J44.9 - CHRONIC OBSTRUCTIVE PULMONARY DISEASE, UNSPECIFIED Status : Chronic Current Visit: Yes Qualifiers: COPD type: unspecified COPD Qualified Code(s): J44.9 - Chronic obstructive pulmonary disease, unspecified - Problem List Review Problem List Initiated/Reviewed/Updated: Yes - My Orders Last 24 Hours: My Active Orders 01/06/17 10:50 IS (RT) [RT Incentive Spirometry] [RC] ASDIRECTED 01/06/17 21:00 Salmeterol Xinafoate [Serevent Diskus] 50 puff INH BID 01/07/17 08:00 Levofloxacin/Dextrose 5%-Water [Levaquin in D5W 750 MG/150 ML] 750 mg Premix Bag 1 bag IV Q24H 01/07/17 08:27 Albuterol/Ipratropium [DuoNeb 3.0-0.5 MG/3 ML] 3 ml NEB Q6HRRT PRN 01/08/17 05:11 BASIC METABOLIC PANEL,BMP [CHEM] AM CBC WITH AUTO DIFF [HEME] AM - Plan Plan:: This 66 year old female admitted with pneumonia and UTI 1. Pneumonia: Improving. Continue Levaquin IV daily. leukocytosis improving. Duonebs, oxygen PRN. BC and sputum pending. 2. UTI: Continue Rocephin. UC mixed marychuy 1,000-10,000. 3. Renal stones: follow up as outpatient. No back pain. 4. COPD:Continue Duonebs. Continue Serevent inh BID, likes this much better than Advair. Did decrease frequency of Duonebs due to jitteriness, added Tessalon pearls overnight to help with cough and sleep. VTE: Lovenox Dispo: 2-4 days pending improvement
[2017-01-07] MEDS: cefTRIAXone 1 GM in Premix Bag 1 BAG IV SCH (12:32)
[2017-01-07] MEDS: guaiFENesin 600 MG Tab.ER PO SCH ×2 (13:23→23:53)
[2017-01-08] MEDS: Benzonatate 100 MG Cap PO SCH ×3 (05:53→21:27)
[2017-01-08] MEDS: guaiFENesin 600 MG Tab.ER PO SCH (05:53)
[2017-01-08 05:56] LABS: CHLORIDE,CL 107 mmol/L (98-110); SODIUM,NA 140 mmol/L (136-146)
[2017-01-08] MEDS: Levofloxacin/Dextrose 5%-Water 750 MG in Premix Bag 1 BAG IV SCH (08:19)
[2017-01-08] MEDS: Enoxaparin 40 MG/0.4 ML Syringe SUBCUT SCH (08:19)
[2017-01-08] MEDS: Acetaminophen 325 MG Tab PO PRN ×3 (08:25→21:25)
--- NOTE | 2017-01-08 09:07 | PCM.PN ---
- General Info Date of Service: 01/08/17 Admission Dx/Problem (Free Text): Admission Diagnosis/Problem Admission Diagnosis/Problem Pneumonia Subjective Update: Continuing to improve today, feels better, but having some abdominal pain with diarrhea. Fever this am, 101. Continues to deny chest pain. weaned off oxygen. Functional Status: Reports: pain controlled, tolerating diet, ambulating, urinating - Review of Systems General: Reports: Fatigue HEENT: Denies: sinus congestion, sore throat Pulmonary: Reports: shortness of breath (continues to improve, weaned off oxygen. ), cough (improved) Cardiovascular: Reports: No Symptoms. Denies: Chest Pain, Palpitations Gastrointestinal: Reports: Abdominal pain, Diarrhea Genitourinary: Reports: no symptoms. Denies: dysuria, frequency, burning Musculoskeletal: Reports: no symptoms Skin: Reports: no symptoms Neurological: Reports: No Symptoms Psychiatric: Reports: no symptoms - Patient Data Vitals - most recent: Last Vital Signs Temp 100.1 F 01/08/17 08:00 Pulse 95 01/08/17 08:00 Resp 22 H 01/08/17 08:00 BP 153/61 H 01/08/17 08:00 Pulse Ox 92 L 01/08/17 08:00 Weight - most recent: 75.75 kg I&O - last 24 hours: Intake & Output 01/07/17 01/08/17 01/08/17 22:59 06:59 14:59 Intake Total 1500 900 Balance 1500 900 Lab Results last 24 hrs: Laboratory Results - last 24 hr 01/08/17 01/08/17 Range/Units 05:00 05:00 WBC 12.89 H (4.0-11.0) K/uL RBC 3.84 L (4.30-5.90) M/uL Hgb 10.4 L (12.0-16.0) g/dL Hct 31.8 L (36.0-46.0) % MCV 82.8 (80.0-98.0) fL MCH 27.1 (27.0-32.0) pg MCHC 32.7 (31.0-37.0) g/dL RDW Std Deviation 42.7 (28.0-62.0) fl RDW Coeff of Edy 14 (11.0-15.0) % Plt Count 342 (150-400) K/uL MPV 10.00 (7.40-12.00) fL Neut % (Auto) 76.1 (48.0-80.0) % Lymph % (Auto) 14.3 L (16.0-40.0) % [place] % (Auto) 8.9 (0.0-15.0) % Eos % (Auto) 0.5 (0.0-7.0) % Baso % (Auto) 0.2 (0.0-1.5) % Neut # (Auto) 9.8 H (1.4-5.7) K/uL Lymph # (Auto) 1.8 (0.6-2.4) K/uL [place] # (Auto) 1.2 H (0.0-0.8) K/uL Eos # (Auto) 0.1 (0.0-0.7) K/uL Baso # (Auto) 0.0 (0.0-0.1) K/uL Nucleated RBC % 0.0 /100WBC Nucleated RBCs # 0 K/uL Sodium 140 (136-146) mmol/L Potassium 3.6 (3.5-5.1) mmol/L Chloride 107 (98-110) mmol/L Carbon Dioxide 24 (21-31) mmol/L BUN 7 (6.0-23.0) mg/dL Creatinine 0.8 (0.6-1.5) mg/dL Est Cr Clr Drug Dosing 56.19 mL/min Estimated GFR (MDRD) > 60.0 ml/min Glucose 105 (60-110) mg/dL Calcium 8.3 L (8.8-10.8) mg/dL Donnell Results last 24 hrs: Microbiology 01/05/17 15:00 Gram Stain - Final Sputum - Expectorated Sputum Culture - Final Normal Respiratory Marychuy YEAST Med Orders - Current: Current Medications Acetaminophen (Tylenol) 650 mg PO Q4H PRN PRN Reason: Fever Last Admin: 01/08/17 08:25 Dose: 650 mg Albuterol (Proventil Neb Soln) 2.5 mg NEB Q2HR PRN PRN Reason: Shortness Of Breath/wheezing Albuterol/Ipratropium (Duoneb 3.0-0.5 Mg/3 Ml) 3 ml NEB Q6HRRT PRN PRN Reason: SOB/wheezing Benzonatate (Tricia Mo) 200 mg PO TID [facility] Last Admin: 01/08/17 05:53 Dose: Not Given Enoxaparin Sodium (Lovenox) 40 mg SUBCUT DAILY [facility] Last Admin: 01/08/17 08:19 Dose: 40 mg Guaifenesin (Mucinex) 600 mg PO TID [facility] Last Admin: 01/08/17 05:53 Dose: Not Given Ceftriaxone Sodium/Dextrose 1 (gm/ Premix) 50 mls @ 100 mls/hr IV Q24H [facility] Last Admin: 01/07/17 12:32 Dose: 100 mls/hr Levofloxacin/Dextrose 750 mg/ (Premix) 150 mls @ 100 mls/hr IV Q24H [facility] Last Admin: 01/08/17 08:19 Dose: 100 mls/hr Influenza Virus Vaccine (Fluzone/Fluarix Vaccine) 60 mcg IM .ONCE ONE Stop: 01/10/17 00:00 Ondansetron HCl (Zofran) 4 mg IVPUSH Q4H PRN PRN Reason: Nausea Salmeterol Xinafoate (Serevent Diskus) 50 puff INH BID [facility] Last Admin: 01/07/17 10:04 Dose: 1 mcg Sodium Chloride (Saline Flush) 10 ml FLUSH ASDIRECTED PRN PRN Reason: Keep Vein Open Last Admin: 01/05/17 02:41 Dose: 10 ml Sodium Chloride (Saline Flush) 2.5 ml FLUSH ASDIRECTED PRN PRN Reason: Keep Vein Open Last Admin: 01/05/17 02:41 Dose: 2.5 ml Discontinued Medications Acetaminophen (Tylenol) 1,000 mg PO NOW ONE Stop: 01/05/17 03:01 Last Admin: 01/05/17 05:11 Dose: Not Given Acetaminophen (Tylenol Extra Strength) 1,000 mg PO ONETIME ONE Stop: 01/05/17 03:06 Last Admin: 01/05/17 03:18 Dose: 1,000 mg Albuterol (Proventil Neb Soln) 2.5 mg NEB ONETIME ONE Stop: 01/05/17 03:05 Last Admin: 01/05/17 03:17 Dose: 2.5 mg Albuterol/Ipratropium (Duoneb 3.0-0.5 Mg/3 Ml) 3 ml NEB Q4HRRT PRN PRN Reason: Shortness Of Breath/wheezing Albuterol/Ipratropium (Duoneb 3.0-0.5 Mg/3 Ml) 3 ml NEB Q4HRRT [facility] Last Admin: 01/05/17 17:35 Dose: 3 ml Albuterol/Ipratropium (Duoneb 3.0-0.5 Mg/3 Ml) 3 ml NEB Q6HRRT [facility] Last Admin: 01/07/17 05:58 Dose: Not Given Calcium Carbonate/Glycine (Tums) 1,000 mg PO ONETIME ONE Stop: 01/07/17 08:33 Last Admin: 01/07/17 09:56 Dose: 1,000 mg Sodium Chloride (Normal Saline) 1,000 mls @ 999 mls/hr IV STAT ONE Stop: 01/05/17 03:27 Last Admin: 01/05/17 02:41 Dose: 999 mls/hr Levofloxacin/Dextrose 750 mg/ (Premix) 150 mls @ 100 mls/hr IV ONETIME ONE Stop: 01/05/17 04:34 Last Admin: 01/05/17 04:58 Dose: 100 mls/hr Piperacillin Sod/Tazobactam (Sod 3.375 gm/ Sodium Chloride) 50 mls @ 100 mls/ hr IV ONETIME ONE Stop: 01/05/17 03:33 Last Admin: 01/05/17 04:23 Dose: 100 mls/hr Vancomycin HCl 1 gm/ Sodium (Chloride) 250 mls @ 166 mls/hr IV ONETIME ONE Stop: 01/05/17 04:34 Last Admin: 01/05/17 07:01 Dose: 166 mls/hr Sodium Chloride (Normal Saline) Confirm Administered Dose 250 mls @ as directed .ROUTE .STK-MED ONE Stop: 01/05/17 06:53 Last Admin: 01/05/17 07:02 Dose: Not Given Levofloxacin/Dextrose 750 mg/ (Premix) 150 mls @ 100 mls/hr IV Q48H [facility] Last Admin: 01/06/17 05:36 Dose: 100 mls/hr Sodium Chloride (Normal Saline) 1,000 mls @ 125 mls/hr IV ASDIRECTED [facility] Stop: 01/06/17 18:00 Last Admin: 01/06/17 09:26 Dose: 125 mls/hr Ondansetron HCl (Zofran) 4 mg IVPUSH ONETIME ONE Stop: 01/05/17 02:28 Last Admin: 01/05/17 02:41 Dose: 4 mg Fluticasone/Salmeterol (Advair Diskus 250-50) 1 puff INH BID [facility] Last Admin: 01/06/17 10:40 Dose: 1 puff Vancomycin HCl (Vancocin) Confirm Administered Dose 1 gm .ROUTE .STK-MED ONE Stop: 01/05/17 06:51 Last Admin: 01/05/17 07:01 Dose: Not Given - Exam General: alert, oriented, cooperative Lungs: Normal respiratory effort, Rhonchi (R mid lobe), Wheezing (expiratory wheeze) Cardiovascular: Regular Rate, Regular Rhythm, No Murmurs Abdomen: bowel sounds present, soft, no distension, tenderness (slight tenderness to lower abdomen). No: CVA tenderness Extremities: no edema, normal pulses Neurological: no new focal deficit Psy/Mental Status: alert, normal affect, normal mood - Problem List & Annotations (1) Pneumonia SNOMED Code(s): 706023779 Code(s): J18.9 - PNEUMONIA, UNSPECIFIED ORGANISM Status: Acute Current Visit: Yes Qualifiers: Pneumonia type: due to unspecified organism Laterality: bilateral Lung location: lower lobe of lung Qualified Code(s): J18.9 - Pneumonia, unspecified organism (2) UTI (urinary tract infection) SNOMED Code(s): 61648832 Code(s): N39.0 - URINARY TRACT INFECTION, SITE NOT SPECIFIED Status: Acute Current Visit: Yes (3) Kidney stone SNOMED Code(s): 67523249 Code(s): N20.0 - CALCULUS OF KIDNEY Status: Acute Current Visit: Yes (4) COPD (chronic obstructive pulmonary disease) SNOMED Code(s): 13656837 Code(s): J44.9 - CHRONIC OBSTRUCTIVE PULMONARY DISEASE, UNSPECIFIED Status : Chronic Current Visit: Yes Qualifiers: COPD type: unspecified COPD Qualified Code(s): J44.9 - Chronic obstructive pulmonary disease, unspecified - Problem List Review Problem List Initiated/Reviewed/Updated: Yes - My Orders Last 24 Hours: My Active Orders 01/07/17 08:27 Albuterol/Ipratropium [DuoNeb 3.0-0.5 MG/3 ML] 3 ml NEB Q6HRRT PRN 01/07/17 14:00 guaiFENesin [Mucinex] 600 mg PO TID 01/08/17 07:59 CDIFF TOX A+B [OP] Routine 01/08/17 08:43 Chest 2V [CR] Routine Blood Culture x2 Reflex Set [OM.PC] Stat 01/08/17 08:44 CULTURE BLOOD [BC] Stat CULTURE BLOOD [BC] Stat 01/08/17 08:46 Abdomen Pelvis wo Cont [CT] Routine Chest wo Cont [CT] Routine - Plan Plan:: This 66 year old female admitted with pneumonia and UTI 1. Pneumonia: Improving. Continue Levaquin IV daily. leukocytosis improving. Duonebs, oxygen PRN. BC and sputum pending. 2. UTI: Continue Rocephin. UC mixed marychuy 1,000-10,000. 3. Renal stones: follow up as outpatient. No back pain. 4. COPD:Continue Duonebs. Continue Serevent inh BID, likes this much better than Advair. Did decrease frequency of Duonebs due to jitteriness, added Tessalon pearls overnight to help with cough and sleep. 5. Abdominal pain: Fever this am. Will obtain BC and obtain CT of abd/pelvis and chest. Will add Flagyl and obtain stool studies. VTE: Lovenox Dispo: 2-4 days pending improvement
[2017-01-08] MEDS ORDERED: metroNIDAZOLE/Normal Saline 500 MG in Premix Bag 1 BAG IV SCH (09:15)
[2017-01-08] MEDS: Salmeterol Xinafoate 50 Mcg 28 Puff/Diskus INH SCH ×2 (10:13→19:59)
--- NOTE | 2017-01-08 13:49 | CT ---
CT of the chest, abdomen and pelvis without contrast. HISTORY: Fever TECHNIQUE: Axial CT images were obtained of the chest, abdomen and pelvis without contrast. Coronal and sagittal reconstructions obtained. FINDINGS: Chest: Emphysematous changes are noted. There is a 1 cm faint groundglass opacity within the left up per lobe. Reticular opacities are noted within the left upper lobe predominantly within the lingular region and the right middle lobe with dense consolidation within the anterior aspect of the left li ngula and the right middle lobe inferiorly. There is also mild consolidation within the lung bases a re there is a trace bilateral pleural effusion. The heart is normal in size without a pericardial ef fusion. Coronary artery calcifications are noted. Borderline, nonpathologically enlarged mediastinal lymph nodes are noted. No axillary lymphadenopathy. The central airways are clear. Abdomen: The liver, spleen, and pancreas appear unremarkable for noncontrast examination. There is mild nodular thickening of the left adrenal gland. The gallbladder appears normal. There is no bulk y retroperitoneal lymphadenopathy. No abdominal ascites. There is mild nonspecific retroperitoneal s tranding. There is an 8 x 4 mm stone within the left ureteropelvic junction with minimal proximal hydronephros is. Nonobstructing left nephrolithiasis also noted. There is mild left renal atrophy. Pelvis: The large and small bowel are normal in caliber without evidence of obstruction. There is no bulky pelvic lymphadenopathy. There is a trace free pelvic fluid. No free air. The urinary bladder appears normal. The visualized osseous structures appear normal. IMPRESSION: 1. Consolidation within the right middle lobe, left lingula, and within the lung bases with trace bi lateral pleural effusions. This may represent ammonia. 2. Pulmonary emphysema. 3. Vague 1 cm groundglass area within the medial left upper lobe, short-term follow-up after treatme nt may be beneficial. 4. Mildly obstructing 4 x 8 mm stone at the left ureteropelvic junction with mild proximal hydroneph rosis. 5. Small nonobstructing left nephrolithiasis. 6. Nonspecific mild retroperitoneal stranding.
[2017-01-08] MEDS: Tamsulosin 0.4 MG Cap.ER PO SCH (16:33)
[2017-01-08] MEDS: metroNIDAZOLE/Normal Saline 500 MG in Premix Bag 1 BAG IV SCH ×2 (16:40→21:25)
[2017-01-09] MEDS: Acetaminophen 325 MG Tab PO PRN ×3 (01:32→19:45)
[2017-01-09] MEDS: metroNIDAZOLE/Normal Saline 500 MG in Premix Bag 1 BAG IV SCH ×2 (04:15→10:23)
[2017-01-09] MEDS: Benzonatate 100 MG Cap PO SCH ×3 (06:10→22:12)
[2017-01-09 07:00] LABS: CHLORIDE,CL 107 mmol/L (98-110); SODIUM,NA 141 mmol/L (136-146)
[2017-01-09] MEDS ORDERED: Potassium Chloride 20 MEQ Tab.ER PO ONE (08:29)
[2017-01-09] MEDS: Tamsulosin 0.4 MG Cap.ER PO SCH (08:42)
[2017-01-09] MEDS: Enoxaparin 40 MG/0.4 ML Syringe SUBCUT SCH (08:42)
[2017-01-09] MEDS: Levofloxacin/Dextrose 5%-Water 750 MG in Premix Bag 1 BAG IV SCH (08:42)
[2017-01-09] MEDS: Salmeterol Xinafoate 50 Mcg 28 Puff/Diskus INH SCH ×2 (09:07→21:17)
[2017-01-09] MEDS ORDERED: Sodium Chloride 0.65% Nasal Spray 45 ML Bottle NAS PRN (12:08)
--- NOTE | 2017-01-09 12:15 | PCM.PN ---
- General Info Date of Service: 01/09/17 Admission Dx/Problem (Free Text): Admission Diagnosis/Problem Admission Diagnosis/Problem Pneumonia Subjective Update: Feeling better today. Cough is better and SOB has improved. Functional Status: Reports: pain controlled, tolerating diet, ambulating, urinating - Review of Systems General: Reports: No Symptoms. Denies: Fever HEENT: Denies: no symptoms, sore throat Pulmonary: Reports: cough (now dry hacking). Denies: shortness of breath Cardiovascular: Denies: Chest Pain, Palpitations Gastrointestinal: Reports: Diarrhea (improved, loose). Denies: Abdominal pain, Nausea, Vomiting Genitourinary: Reports: no symptoms. Denies: dysuria Musculoskeletal: Reports: no symptoms Skin: Reports: no symptoms Neurological: Reports: No Symptoms Psychiatric: Reports: no symptoms - Patient Data Vitals - most recent: Last Vital Signs Temp 99.0 F 01/09/17 08:00 Pulse 89 01/09/17 08:00 Resp 24 H 01/09/17 08:00 BP 146/67 H 01/09/17 08:00 Pulse Ox 93 L 01/09/17 08:00 Weight - most recent: 75.75 kg I&O - last 24 hours: Intake & Output 01/08/17 01/09/17 01/09/17 22:59 06:59 14:59 Intake Total 1380 900 250 Output Total 700 1270 Balance 680 -370 250 Lab Results last 24 hrs: Laboratory Results - last 24 hr 01/09/17 01/09/17 Range/Units 06:15 06:15 WBC 12.02 H (4.0-11.0) K/uL RBC 3.88 L (4.30-5.90) M/uL Hgb 10.7 L (12.0-16.0) g/dL Hct 32.0 L (36.0-46.0) % MCV 82.5 (80.0-98.0) fL MCH 27.6 (27.0-32.0) pg MCHC 33.4 (31.0-37.0) g/dL RDW Std Deviation 42.3 (28.0-62.0) fl RDW Coeff of Edy 14 (11.0-15.0) % Plt Count 340 (150-400) K/uL MPV 9.60 (7.40-12.00) fL Neut % (Auto) [employer] Lymph % (Auto) [employer] [place] % (Auto) [employer] Eos % (Auto) [employer] Baso % (Auto) [employer] Neut # (Auto) [employer] Lymph # (Auto) [employer] [place] # (Auto) [employer] Eos # (Auto) [employer] Baso # (Auto) [employer] Add Manual Diff YES Neutrophils % (Manual) 75 (48.0-80.0) % Band Neutrophils % 2 % Lymphocytes % (Manual) 15 L (16.0-40.0) % Monocytes % (Manual) 8 (0.0-15.0) % Nucleated RBC % 0.0 /100WBC Absolute Seg Neuts 9.0 Band Neutrophils # 0.2 Lymphocytes # (Manual) 1.8 Monocytes # (Manual) 1.0 Nucleated RBCs # 0 K/uL Sodium 141 (136-146) mmol/L Potassium 3.3 L (3.5-5.1) mmol/L Chloride 107 (98-110) mmol/L Carbon Dioxide 23 (21-31) mmol/L BUN 6 (6.0-23.0) mg/dL Creatinine 0.9 (0.6-1.5) mg/dL Est Cr Clr Drug Dosing 49.95 mL/min Estimated GFR (MDRD) > 60.0 ml/min Glucose 104 (60-110) mg/dL Calcium 8.8 (8.8-10.8) mg/dL Total Bilirubin 0.3 (0.1-1.5) mg/dL AST 57 H (5-40) IU/L ALT 88 H (8-54) IU/L Alkaline Phosphatase 77 (40-150) Total Protein 6.9 (6.0-8.0) g/dL Albumin 2.8 L (3.4-4.8) g/dL Globulin 4.1 H (2.0-3.5) g/dL Albumin/Globulin Ratio 0.7 L (1.3-2.8) Donnell Results last 24 hrs: Microbiology 01/08/17 10:05 Aerobic Blood Culture - Preliminary Blood - Venous - Lab Draw NO GROWTH AFTER 1 DAY Anaerobic Blood Culture - Preliminary NO GROWTH AFTER 1 DAY 01/08/17 09:10 Aerobic Blood Culture - Preliminary Blood - Venous NO GROWTH AFTER 1 DAY Anaerobic Blood Culture - Preliminary NO GROWTH AFTER 1 DAY 01/08/17 10:12 Clostridium difficile Toxin A&B (M) - Final Stool / Feces Negative for C.Diff Toxin/AG Med Orders - Current: Current Medications Acetaminophen (Tylenol) 650 mg PO Q4H PRN PRN Reason: Fever Last Admin: 01/09/17 08:56 Dose: 650 mg Albuterol (Proventil Neb Soln) 2.5 mg NEB Q2HR PRN PRN Reason: Shortness Of Breath/wheezing Albuterol/Ipratropium (Duoneb 3.0-0.5 Mg/3 Ml) 3 ml NEB Q6HRRT PRN PRN Reason: SOB/wheezing Benzonatate (Tessalon Perles) 200 mg PO TID REPLACED BY [facility] Last Admin: 01/09/17 06:10 Dose: Not Given Enoxaparin Sodium (Lovenox) 40 mg SUBCUT DAILY [facility]PL[facility]ED BY [facility] Last Admin: 01/09/17 08:42 Dose: 40 mg Levofloxacin/Dextrose 750 mg/ (Premix) 150 mls @ 100 mls/hr IV Q24H REPLACED BY [facility] Last Admin: 01/09/17 08:42 Dose: 100 mls/hr Metronidazole 500 mg/ Premix 100 mls @ 100 mls/hr IV Q6H REPLACED BY [facility] Last Admin: 01/09/17 10:23 Dose: 100 mls/hr Influenza Virus Vaccine (Fluzone/Fluarix Vaccine) 60 mcg IM .ONCE ONE Stop: 01/10/17 00:00 Ondansetron HCl (Zofran) 4 mg IVPUSH Q4H PRN PRN Reason: Nausea Last Admin: 01/09/17 08:42 Dose: 4 mg Salmeterol Xinafoate (Serevent Diskus) 50 puff INH BID [facility]PL[facility] Last Admin: 01/09/17 09:07 Dose: 1 mcg Sodium Chloride (Saline Flush) 10 ml FLUSH ASDIRECTED PRN PRN Reason: Keep Vein Open Last Admin: 01/05/17 02:41 Dose: 10 ml Sodium Chloride (Saline Flush) 2.5 ml FLUSH ASDIRECTED PRN PRN Reason: Keep Vein Open Last Admin: 01/05/17 02:41 Dose: 2.5 ml Tamsulosin HCl (Flomax) 0.4 mg PO PCBREAKFAST REPLACED BY [facility] Last Admin: 01/09/17 08:42 Dose: 0.4 mg Discontinued Medications Acetaminophen (Tylenol) 1,000 mg PO NOW ONE Stop: 01/05/17 03:01 Last Admin: 01/05/17 05:11 Dose: Not Given Acetaminophen (Tylenol Extra Strength) 1,000 mg PO ONETIME ONE Stop: 01/05/17 03:06 Last Admin: 01/05/17 03:18 Dose: 1,000 mg Albuterol (Proventil Neb Soln) 2.5 mg NEB ONETIME ONE Stop: 01/05/17 03:05 Last Admin: 01/05/17 03:17 Dose: 2.5 mg Albuterol/Ipratropium (Duoneb 3.0-0.5 Mg/3 Ml) 3 ml NEB Q4HRRT PRN PRN Reason: Shortness Of Breath/wheezing Albuterol/Ipratropium (Duoneb 3.0-0.5 Mg/3 Ml) 3 ml NEB Q4HRRT REPLACED BY [facility] Last Admin: 01/05/17 17:35 Dose: 3 ml Albuterol/Ipratropium (Duoneb 3.0-0.5 Mg/3 Ml) 3 ml NEB Q6HRRT REPLACED BY [facility] Last Admin: 01/07/17 05:58 Dose: Not Given Calcium Carbonate/Glycine (Tums) 1,000 mg PO ONETIME ONE Stop: 01/07/17 08:33 Last Admin: 01/07/17 09:56 Dose: 1,000 mg Guaifenesin (Mucinex) 600 mg PO TID REPLACED BY [facility] Last Admin: 01/08/17 05:53 Dose: Not Given Sodium Chloride (Normal Saline) 1,000 mls @ 999 mls/hr IV STAT ONE Stop: 01/05/17 03:27 Last Admin: 01/05/17 02:41 Dose: 999 mls/hr Levofloxacin/Dextrose 750 mg/ (Premix) 150 mls @ 100 mls/hr IV ONETIME ONE Stop: 01/05/17 04:34 Last Admin: 01/05/17 04:58 Dose: 100 mls/hr Piperacillin Sod/Tazobactam (Sod 3.375 gm/ Sodium Chloride) 50 mls @ 100 mls/ hr IV ONETIME ONE Stop: 01/05/17 03:33 Last Admin: 01/05/17 04:23 Dose: 100 mls/hr Vancomycin HCl 1 gm/ Sodium (Chloride) 250 mls @ 166 mls/hr IV ONETIME ONE Stop: 01/05/17 04:34 Last Admin: 01/05/17 07:01 Dose: 166 mls/hr Sodium Chloride (Normal Saline) Confirm Administered Dose 250 mls @ as directed .ROUTE .STK-MED ONE Stop: 01/05/17 06:53 Last Admin: 01/05/17 07:02 Dose: Not Given Levofloxacin/Dextrose 750 mg/ (Premix) 150 mls @ 100 mls/hr IV Q48H REPLACED BY [facility] Last Admin: 01/06/17 05:36 Dose: 100 mls/hr Sodium Chloride (Normal Saline) 1,000 mls @ 125 mls/hr IV ASDIRECTED REPLACED BY [facility] Stop: 01/06/17 18:00 Last Admin: 01/06/17 09:26 Dose: 125 mls/hr Ceftriaxone Sodium/Dextrose 1 (gm/ Premix) 50 mls @ 100 mls/hr IV Q24H REPLACED BY [facility] Last Admin: 01/07/17 12:32 Dose: 100 mls/hr Metronidazole 500 mg/ Premix 100 mls @ 100 mls/hr IV QID REPLACED BY [facility] Last Admin: 01/08/17 10:06 Dose: 100 mls/hr Ondansetron HCl (Zofran) 4 mg IVPUSH ONETIME ONE Stop: 01/05/17 02:28 Last Admin: 01/05/17 02:41 Dose: 4 mg Potassium Chloride (Klor-Con M20) 40 meq PO ONETIME ONE Stop: 01/09/17 08:30 Last Admin: 01/09/17 08:42 Dose: 40 meq Fluticasone/Salmeterol (Advair Diskus 250-50) 1 puff INH BID REPLACED BY [facility] Last Admin: 01/06/17 10:40 Dose: 1 puff Vancomycin HCl (Vancocin) Confirm Administered Dose 1 gm .ROUTE .STK-MED ONE Stop: 01/05/17 06:51 Last Admin: 01/05/17 07:01 Dose: Not Given - Exam Quality Assessment: No: supplemental oxygen Lungs: Clear to auscultation, Normal respiratory effort Cardiovascular: Regular Rate, Regular Rhythm Abdomen: bowel sounds present, soft, no tenderness, no distension Extremities: no edema, normal pulses Neurological: no new focal deficit Psy/Mental Status: alert, normal affect, normal mood - Problem List & Annotations (1) Pneumonia SNOMED Code(s): 181370158 Code(s): J18.9 - PNEUMONIA, UNSPECIFIED ORGANISM Status: Acute Current Visit: Yes Qualifiers: Pneumonia type: due to unspecified organism Laterality: bilateral Lung location: lower lobe of lung Qualified Code(s): J18.9 - Pneumonia, unspecified organism (2) UTI (urinary tract infection) SNOMED Code(s): 94690961 Code(s): N39.0 - URINARY TRACT INFECTION, SITE NOT SPECIFIED Status: Acute Current Visit: Yes (3) Kidney stone SNOMED Code(s): 74214581 Code(s): N20.0 - CALCULUS OF KIDNEY Status: Acute Current Visit: Yes (4) COPD (chronic obstructive pulmonary disease) SNOMED Code(s): 14441740 Code(s): J44.9 - CHRONIC OBSTRUCTIVE PULMONARY DISEASE, UNSPECIFIED Status : Chronic Current Visit: Yes Qualifiers: COPD type: unspecified COPD Qualified Code(s): J44.9 - Chronic obstructive pulmonary disease, unspecified - Problem List Review Problem List Initiated/Reviewed/Updated: Yes - My Orders Last 24 Hours: My Active Orders 01/08/17 15:00 Tamsulosin [Flomax] 0.4 mg PO PCBREAKFAST 01/08/17 16:00 metroNIDAZOLE/Normal Saline [Flagyl 500 MG in NS 100 ML] 500 mg Premix Bag 1 bag IV Q6H - Plan Plan:: This 66 year old female admitted with pneumonia and UTI 1. Pneumonia: Improving. Continue Levaquin IV daily. leukocytosis improving. Duonebs, oxygen PRN. BC and sputum negative. 2. UTI: Treat with Levaquin as above. 3. Renal stones: follow up as outpatient. No back pain. 4. COPD:Continue Duonebs. Continue Serevent inh BID, PRN Duonebs 5. Abdominal pain: Resolved. BC negative x1 day, Cdiff negative. Temperature was not 101, it was noted 100.1. No fevers. VTE: Lovenox Dispo: Likely discharge home in am with Levaquin and follow up with PCP and Dr Hernández.
[2017-01-09] MEDS ORDERED: Flu Vaccine 2016-17(36Mos+)/PF 60 MCG/0.5 ML Syringe IM ONE (23:59)
[2017-01-10] MEDS: Acetaminophen 325 MG Tab PO PRN ×3 (00:06→09:07)
[2017-01-10] MEDS: Benzonatate 100 MG Cap PO SCH (05:58)
[2017-01-10 06:36] LABS: CHLORIDE,CL 107 mmol/L (98-110); SODIUM,NA 139 mmol/L (136-146)
[2017-01-10] MEDS: Enoxaparin 40 MG/0.4 ML Syringe SUBCUT SCH (08:52)
[2017-01-10] MEDS: Tamsulosin 0.4 MG Cap.ER PO SCH (08:52)
[2017-01-10] MEDS: Levofloxacin/Dextrose 5%-Water 750 MG in Premix Bag 1 BAG IV SCH (08:52)
[2017-01-10] MEDS: Salmeterol Xinafoate 50 Mcg 28 Puff/Diskus INH SCH (09:21)
[2017-01-10 10:38] VITALS: BP 131/63
--- NOTE | 2017-01-10 11:14 | PCM.DCSUM1 ---
Discharge Summary - Discharge Data Discharge Date: 01/10/17 Discharge Disposition: Home, Self-Care 01 Condition: Good - Patient Summary/Data Consults: Consultations 01/05/17 09:21 Consult to Physician [CONS] Routine - Patient Instructions Driving: May Drive Today Showering/Bathing: May Shower - Discharge Plan Prescriptions/Med Rec: Albuterol [Proventil HFA] 6.7 gm INH Q4H PRN #1 inhaler PRN Reason: SOB/wheezing Levofloxacin [Levaquin] 750 mg PO DAILY #5 tablet Salmeterol Xinafoate [Serevent Diskus] 1 puff INH BID #1 diskus Tamsulosin [Flomax] 0.4 mg PO PCBREAKFAST #30 cap.er Home Medications: Home Meds Hydrocodone/Acetaminophen [Hydrocodon-Acetaminophen 5-325] 5 - 325 mg PO Q6H PRN 01/05/17 [History] Ranitidine [Zantac] 150 mg PO BID 01/05/17 [History] Acetaminophen [Tylenol] 650 mg PO Q4H PRN #0 tablet 01/09/17 [Rx] Albuterol [Proventil HFA] 6.7 gm INH Q4H PRN #1 inhaler 01/09/17 [Rx] Levofloxacin [Levaquin] 750 mg PO DAILY #5 tablet 01/10/17 [Rx] Salmeterol Xinafoate [Serevent Diskus] 1 puff INH BID #1 diskus 01/10/17 [Rx] Tamsulosin [Flomax] 0.4 mg PO PCBREAKFAST #30 cap.er 01/10/17 [Rx] Referrals: Samara Rodriguez NP [Nurse Practitioner] - 01/16/17 9:45 am (Would like a new PCP, please arrange follow up with Samara in 1 week) Ranjeet Hernández MD [Physician] - - Patient Data Vitals - Most Recent: Last Vital Signs Temp 36.3 C 01/10/17 08:00 Pulse 86 01/10/17 08:00 Resp 24 H 01/10/17 08:00 BP 131/63 01/10/17 08:00 Pulse Ox 92 L 01/10/17 08:00 Weight - Most Recent: 75.75 kg I&O - Last 24 hours: Intake & Output 01/09/17 01/10/17 01/10/17 22:59 06:59 14:59 Intake Total 1000 100 Output Total 1030 1100 Balance -30 -1000 Lab Results - Last 24 hrs: Laboratory Results - last 24 hr 01/10/17 01/10/17 Range/Units 05:53 05:53 WBC 10.87 (4.0-11.0) K/uL RBC 3.59 L (4.30-5.90) M/uL Hgb 9.8 L (12.0-16.0) g/dL Hct 29.9 L (36.0-46.0) % MCV 83.3 (80.0-98.0) fL MCH 27.3 (27.0-32.0) pg MCHC 32.8 (31.0-37.0) g/dL RDW Std Deviation 43.8 (28.0-62.0) fl RDW Coeff of Edy 14 (11.0-15.0) % Plt Count 333 (150-400) K/uL MPV 9.30 (7.40-12.00) fL Add Manual Diff YES Neutrophils % (Manual) 69 (48.0-80.0) % Band Neutrophils % 3 % Lymphocytes % (Manual) 24 (16.0-40.0) % Monocytes % (Manual) 3 (0.0-15.0) % Eosinophils % (Manual) 1 (0.0-7.0) % Nucleated RBC % 0.0 /100WBC Absolute Seg Neuts 7.5 Band Neutrophils # 0.3 Lymphocytes # (Manual) 2.6 Monocytes # (Manual) 0.3 Eosinophils # (Manual) 0.1 Nucleated RBCs # 0 K/uL Sodium 139 (136-146) mmol/L Potassium 3.8 (3.5-5.1) mmol/L Chloride 107 (98-110) mmol/L Carbon Dioxide 24 (21-31) mmol/L BUN 6 (6.0-23.0) mg/dL Creatinine 0.8 (0.6-1.5) mg/dL Est Cr Clr Drug Dosing 56.19 mL/min Estimated GFR (MDRD) > 60.0 ml/min Glucose 94 (60-110) mg/dL Calcium 8.6 L (8.8-10.8) mg/dL YULIA Results - Last 24 hrs: Microbiology 01/08/17 10:05 Aerobic Blood Culture - Preliminary Blood - Venous - Lab Draw NO GROWTH AFTER 2 DAYS Anaerobic Blood Culture - Preliminary NO GROWTH AFTER 2 DAYS 01/08/17 09:10 Aerobic Blood Culture - Preliminary Blood - Venous NO GROWTH AFTER 2 DAYS Anaerobic Blood Culture - Preliminary NO GROWTH AFTER 2 DAYS Med Orders - Current: Current Medications Acetaminophen (Tylenol) 650 mg PO Q4H PRN PRN Reason: Fever Last Admin: 01/10/17 09:07 Dose: 650 mg Albuterol (Proventil Neb Soln) 2.5 mg NEB Q2HR PRN PRN Reason: Shortness Of Breath/wheezing Albuterol/Ipratropium (Duoneb 3.0-0.5 Mg/3 Ml) 3 ml NEB Q6HRRT PRN PRN Reason: SOB/wheezing Benzonatate (Tessalon Perles) 200 mg PO TID [facility] Last Admin: 01/10/17 05:58 Dose: Not Given Enoxaparin Sodium (Lovenox) 40 mg SUBCUT DAILY [facility] Last Admin: 01/10/17 08:52 Dose: 40 mg Levofloxacin/Dextrose 750 mg/ (Premix) 150 mls @ 100 mls/hr IV Q24H [facility] Last Admin: 01/10/17 08:52 Dose: 100 mls/hr Ondansetron HCl (Zofran) 4 mg IVPUSH Q4H PRN PRN Reason: Nausea Last Admin: 01/09/17 08:42 Dose: 4 mg Salmeterol Xinafoate (Serevent Diskus) 50 puff INH BID [facility] Last Admin: 01/10/17 09:21 Dose: 1 mcg Sodium Chloride (Saline Flush) 10 ml FLUSH ASDIRECTED PRN PRN Reason: Keep Vein Open Last Admin: 01/05/17 02:41 Dose: 10 ml Sodium Chloride (Saline Flush) 2.5 ml FLUSH ASDIRECTED PRN PRN Reason: Keep Vein Open Last Admin: 01/05/17 02:41 Dose: 2.5 ml Sodium Chloride ([place] Nasal [place]) 1 ml SUE Q4H PRN PRN Reason: congestion Tamsulosin HCl (Flomax) 0.4 mg PO PCBREAKFAST [facility] Last Admin: 01/10/17 08:52 Dose: 0.4 mg Discontinued Medications Acetaminophen (Tylenol) 1,000 mg PO NOW ONE Stop: 01/05/17 03:01 Last Admin: 01/05/17 05:11 Dose: Not Given Acetaminophen (Tylenol Extra Strength) 1,000 mg PO ONETIME ONE Stop: 01/05/17 03:06 Last Admin: 01/05/17 03:18 Dose: 1,000 mg Albuterol (Proventil Neb Soln) 2.5 mg NEB ONETIME ONE Stop: 01/05/17 03:05 Last Admin: 01/05/17 03:17 Dose: 2.5 mg Albuterol/Ipratropium (Duoneb 3.0-0.5 Mg/3 Ml) 3 ml NEB Q4HRRT PRN PRN Reason: Shortness Of Breath/wheezing Albuterol/Ipratropium (Duoneb 3.0-0.5 Mg/3 Ml) 3 ml NEB Q4HRRT [facility] Last Admin: 01/05/17 17:35 Dose: 3 ml Albuterol/Ipratropium (Duoneb 3.0-0.5 Mg/3 Ml) 3 ml NEB Q6HRRT [facility] Last Admin: 01/07/17 05:58 Dose: Not Given Calcium Carbonate/Glycine (Tums) 1,000 mg PO ONETIME ONE Stop: 01/07/17 08:33 Last Admin: 01/07/17 09:56 Dose: 1,000 mg Guaifenesin (Mucinex) 600 mg PO TID [facility] Last Admin: 01/08/17 05:53 Dose: Not Given Sodium Chloride (Normal Saline) 1,000 mls @ 999 mls/hr IV STAT ONE Stop: 01/05/17 03:27 Last Admin: 01/05/17 02:41 Dose: 999 mls/hr Levofloxacin/Dextrose 750 mg/ (Premix) 150 mls @ 100 mls/hr IV ONETIME ONE Stop: 01/05/17 04:34 Last Admin: 01/05/17 04:58 Dose: 100 mls/hr Piperacillin Sod/Tazobactam (Sod 3.375 gm/ Sodium Chloride) 50 mls @ 100 mls/ hr IV ONETIME ONE Stop: 01/05/17 03:33 Last Admin: 01/05/17 04:23 Dose: 100 mls/hr Vancomycin HCl 1 gm/ Sodium (Chloride) 250 mls @ 166 mls/hr IV ONETIME ONE Stop: 01/05/17 04:34 Last Admin: 01/05/17 07:01 Dose: 166 mls/hr Sodium Chloride (Normal Saline) Confirm Administered Dose 250 mls @ as directed .ROUTE .STK-MED ONE Stop: 01/05/17 06:53 Last Admin: 01/05/17 07:02 Dose: Not Given Levofloxacin/Dextrose 750 mg/ (Premix) 150 mls @ 100 mls/hr IV Q48H [facility] Last Admin: 01/06/17 05:36 Dose: 100 mls/hr Sodium Chloride (Normal Saline) 1,000 mls @ 125 mls/hr IV ASDIRECTED [facility] Stop: 01/06/17 18:00 Last Admin: 01/06/17 09:26 Dose: 125 mls/hr Ceftriaxone Sodium/Dextrose 1 (gm/ Premix) 50 mls @ 100 mls/hr IV Q24H [facility] Last Admin: 01/07/17 12:32 Dose: 100 mls/hr Metronidazole 500 mg/ Premix 100 mls @ 100 mls/hr IV QID [facility] Last Admin: 01/08/17 10:06 Dose: 100 mls/hr Metronidazole 500 mg/ Premix 100 mls @ 100 mls/hr IV Q6H [facility] Last Admin: 01/09/17 10:23 Dose: 100 mls/hr Influenza Virus Vaccine (Fluzone/Fluarix Vaccine) 60 mcg IM .ONCE ONE Stop: 01/10/17 00:00 Ondansetron HCl (Zofran) 4 mg IVPUSH ONETIME ONE Stop: 01/05/17 02:28 Last Admin: 01/05/17 02:41 Dose: 4 mg Potassium Chloride (Klor-Con M20) 40 meq PO ONETIME ONE Stop: 01/09/17 08:30 Last Admin: 01/09/17 08:42 Dose: 40 meq Fluticasone/Salmeterol (Advair Diskus 250-50) 1 puff INH BID [facility] Last Admin: 01/06/17 10:40 Dose: 1 puff Vancomycin HCl (Vancocin) Confirm Administered Dose 1 gm .ROUTE .STK-MED ONE Stop: 01/05/17 06:51 Last Admin: 01/05/17 07:01 Dose: Not Given *Q Meaningful Use (DIS) - VTE *Q VTE Criteria *Q: - Stroke *Q Stroke Criteria *Q: - AMI *Q AMI Criteria *Q:
== END 2017-01-10 12:30 | disposition home or self-care (01) | DRG 139 ==
LOC: MW.ED 02:19 → UNDOADMIN 06:53 → MW.MS 06:53
PROVIDERS: ADMIT Family Medicine; ATTEND Family Medicine
DX: J18.9 Pneumonia, unspecified organism (principal); N39.0 Urinary tract infection, site not specified; I10 Essential (primary) hypertension; J44.9 Chronic obstructive pulmonary disease, unspecified; F17.200 Nicotine dependence, unspecified, uncomplicated; N20.0 Calculus of kidney; Z79.899 Other long term (current) drug therapy
CPT/HCPCS: 36415; 36600; 71020; 71020-26; 71250; 71250-26; 74176; 74176-26; 80048; 80053; 80305; 81001; 82140; 82803; 83605; 83690; 83880; 84484; 85025; 85610; 87040; 87070; 87086; 87205; 87324; 93005; 94640; 94664; 96361; 96365; 96366; 96367; 96375; 99284; 99285-25; A9270-GY; J0696; J1650; J1956; J2405; J2543; J3370; J7040; J7050

== ENCOUNTER → 2017-02-12 | Outpatient (CLI) | payer BC ==
--- NOTE | 2017-02-12 14:59 | CR ---
EXAMINATION: Abdomen HISTORY: Calculus of the kidney COMPARISON: CT dated 01/08/2017 TECHNIQUE: AP views FINDINGS: The previously demonstrated calculus within the upper ureter is possibly visualized, howev er this cannot be definitively confirmed. There is a nonobstructive bowel gas pattern. Bone minerali zation appears normal. No organomegaly. IMPRESSION: 1. The previously demonstrated calculus is possibly visualized unchanged in position within the uppe r left ureter. However this is poorly visualized.
--- NOTE | 2017-02-12 15:08 | CR ---
EXAMINATION: Two-view chest (PA and Lateral views). HISTORY: Pneumonia. Comparison: 01/05/2017 FINDINGS: The trachea is midline. The cardiomediastinal silhouette is within normal limits. Is linear atelecta sis noted bilaterally. No focal pulmonary infiltrates, effusions or pneumothorax. Osseous structures appear unremarkable. IMPRESSION: Linear atelectasis bilaterally without significant residual focal infiltrates.
--- NOTE | 2017-02-12 17:01 | CT ---
CT of the abdomen and pelvis without contrast. HISTORY: Kidney stone TECHNIQUE: Axial CT images were obtained of the abdomen and pelvis without contrast. Coronal and sag ittal reconstructions obtained. COMPARISON: 01/08/2017. FINDINGS: There is atelectasis within the left lung base, decreased from the prior examination. The liver and spleen appear unremarkable. There is mild nodular thickening of the left adrenal gland . The pancreas appears unremarkable for noncontrast examination. The gallbladder appears normal. The gallbladder appears normal. There is no bulky retroperitoneal lymphadenopathy. No abdominal ascite s. There is a stable 8 x 3 mm stone within the proximal left ureter without significant hydronephrosis. Nonobstructing left renal stones also noted. No obstructive uropathy noted on the right. The large and small bowel are normal in caliber without evidence of obstruction. The appendix appear s normal. Scattered diverticula without evidence of diverticulitis. There is no bulky pelvic lymphad enopathy. No free fluid. No free air. The urinary bladder appears normal. The visualized osseous structures appear normal. IMPRESSION: 1. There is a stable 8 x 3 mm stone within the proximal left ureter without significant hydronephros is. 2. Atelectasis within the left lung base, decreased in prominence. 3. Nonobstructing left nephrolithiasis. 4. Minimal scattered diverticulosis.
== END | disposition home or self-care (01) ==
LOC: MW.CHUR 10:56
PROVIDERS: ATTEND Urology
DX: J18.9 Pneumonia, unspecified organism (principal); J98.11 Atelectasis; N20.1 Calculus of ureter; N20.0 Calculus of kidney; K57.90 Diverticulosis of intestine, part unspecified, without perforation or abscess without bleeding; Z87.440 Personal history of urinary (tract) infections
CPT/HCPCS: 71020; 71020-26; 74000; 74000-26; 74176; 74176-26; 81001

== ENCOUNTER 2017-03-10 08:56 | Day surgery (SDC) | payer BC ==
[~2017-03-10 08:56] MED LIST: Iopamidol 408 MG/ML 50 ML SDV ONE; Lactated Ringers 1,000 ML IV SCH; ceFAZolin 1 GM in Premix Bag 1 BAG IV ONE
[2017-03-10] MEDS ORDERED: Ketorolac 30 MG/ML SDV ONE (10:01)
[2017-03-10] MEDS ORDERED: Midazolam 1 MG/ML 2 ML SDV ONE (10:01)
[2017-03-10] MEDS ORDERED: Lidocaine 2% 5 ML SDV ONE (10:01)
[2017-03-10] MEDS ORDERED: fentaNYL 250 MCG/5 ML SDV ONE (10:01)
[2017-03-10] MEDS ORDERED: Rocuronium 10 MG/ML 10 ML Syringe ONE (10:01)
[2017-03-10] MEDS ORDERED: Neostigmine Methylsulfate 1 MG/ML 5 ML Syringe ONE (10:01)
[2017-03-10] MEDS ORDERED: Ondansetron 4 MG/2 ML SDV ONE (10:01)
[2017-03-10] MEDS ORDERED: Propofol 200 MG/20 ML SDV ONE ×2 (10:01→10:03)
[2017-03-10] MEDS ORDERED: Labetalol 100 MG/20 ML MDV IVPUSH ONE (10:03)
--- NOTE | 2017-03-10 10:13 | PCM.PREANE ---
Preanesthetic Assessment - Anesthesia/Transfusion/Family Hx Anesthesia History: Prior Anesthesia Without Reaction Family History of Anesthesia Reaction: No Transfusion History: No Prior Transfusion(s) - Review of Systems General: No Symptoms Pulmonary: No Symptoms Cardiovascular: No Symptoms Gastrointestinal: No symptoms Neurological: No Symptoms Other: Reports: None - Physical Assessment NPO Status Date: 03/09/17 Height: 1.57 m Weight: 75.296 kg ASA Class: 2 Mental Status: Alert & Oriented x3 Airway Class: Mallampati = 2 Dentition: Reports: Broken Tooth/Teeth, Missing Tooth/Teeth ROM/Head Extension: Full Lungs: Clear to auscultation, Normal respiratory effort Cardiovascular: Regular Rate, Regular Rhythm - Allergies Allergies/Adverse Reactions: Allergies Allergy/AdvReac Type Severity Reaction Status Date / Time mold Allergy Weakness Verified 03/06/17 11:15 - Anesthesia Plan Pre-Op Medication Ordered: Other (labetalol 10 mg IV for hypertension) - Acknowledgements Anesthesia Type Planned: General Anesthesia Pt an Appropriate Candidate for the Planned Anesthesia: Yes Alternatives and Risks of Anesthesia Discussed w Pt/Guardian: Yes Pt/Guardian Understands and Agrees with Anesthesia Plan: Yes Additional Comments: problem list: COPD, HTN (untreated but arrival [employer] was 193/115, later 173/91), Will give labetalol 10 mg iv in pre op holding. 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: Reports: Musculoskeletal History: Reports: Back Pain, Chronic, Neck Pain, Chronic Other Musculoskeletal History: bulging discs in back Neurological History: Reports: Headaches, Chronic, Vertigo Other Neuro History: sinus headaches, has lumbar bulging discs, hx of motion sickness Psychiatric History: Reports: None Endocrine/Metabolic History: Reports: Obesity/BMI 30+ Hematologic History: Reports: None Immunologic History: Reports: None Oncologic (Cancer) History: Reports: None Dermatologic History: Reports: None - Infectious Disease History Infectious Disease History: Reports: Measles - Past Surgical History Head Surgeries/Procedures: Reports: None HEENT Surgical History: Reports: Tonsillectomy Respiratory Surgical History: Reports: None GI Surgical History: Reports: None Female Surgical History: Reports: Tubal Ligation, Other (See Below) Other Female Surgeries/Procedures: bilateral salpingectomy after failed BTL Endocrine Surgical History: Reports: None Neurological Surgical History: Reports: None Musculoskeletal Surgical History: Reports: None - SUBSTANCE USE Smoking Status *Q: Former Smoker Tobacco Use Within Last Twelve Months: Cigarettes Recreational Drug Use History: No - HOME MEDS Home Medications: Home Meds Hydrocodone/Acetaminophen [Hydrocodon-Acetaminophen 5-325] 5 - 325 mg PO Q6H PRN 01/05/17 [History] Albuterol [Proventil HFA] 6.7 gm INH Q4H PRN #1 inhaler 01/09/17 [Rx] Dilotab I I 1 tab PO ASDIRECTED PRN 03/02/17 [History] Excedrin Migraine 1 tab PO ASDIRECTED PRN 03/02/17 [History] Ondansetron HCl [Zofran] 4 mg PO ASDIRECTED PRN 03/02/17 [History] - CURRENT (IN HOUSE) MEDS Current Meds: Current Medications Lactated Ringer's (Ringers, Lactated) 1,000 mls @ 100 mls/hr IV ASDIRECTED MARJORIE Labetalol HCl (Normodyne) 10 mg IVPUSH ONETIME ONE PRN Reason: Protocol Stop: 03/10/17 10:04 Discontinued Medications Fentanyl (Sublimaze) Confirm Administered Dose 250 mcg .ROUTE .STK-MED ONE Stop: 03/10/17 10:02 Glycopyrrolate () Confirm Administered Dose 1 mg .ROUTE .STK-MED ONE Stop: 03/10/17 10:02 Lactated Ringer's (Ringers, Lactated) 1,000 mls @ 100 mls/hr IV ASDIRECTED MARJORIE Cefazolin Sodium/Dextrose 1 gm (/ Premix) 50 mls @ 100 mls/hr IV ONCALL ONE Stop: 03/10/17 00:30 Cefazolin Sodium/Dextrose (Ancef) Confirm Administered Dose 50 mls @ as directed .ROUTE .STK-MED ONE Stop: 03/10/17 10:03 Iopamidol (Isovue-200 (41%)) Confirm Administered Dose 50 ml .ROUTE .STK-MED ONE Stop: 03/10/17 07:33 Ketorolac Tromethamine (Toradol) Confirm Administered Dose 30 mg .ROUTE .STK- MED ONE Stop: 03/10/17 10:02 Lidocaine (Xylocaine-Mpf 2%) Confirm Administered Dose 10 ml .ROUTE .STK-MED ONE Stop: 03/10/17 10:02 Midazolam HCl (Versed 1 Mg/Ml) Confirm Administered Dose 2 mg .ROUTE .ST-MED ONE Stop: 03/10/17 10:02 Neostigmine Methylsulfate (Neostigmine) Confirm Administered Dose 5 mg .ROUTE .ST-MED ONE Stop: 03/10/17 10:02 Ondansetron HCl (Zofran) Confirm Administered Dose 4 mg .ROUTE .ST-MED ONE Stop: 03/10/17 10:02 Propofol (Diprivan 20 Ml) Confirm Administered Dose 400 mg .ROUTE .ST-MED ONE Stop: 03/10/17 10:02 Propofol (Diprivan 20 Ml) Confirm Administered Dose 200 mg .ROUTE .ST-MED ONE Stop: 03/10/17 10:04 Rocuronium Andrews (Zemuron) Confirm Administered Dose 100 mg .ROUTE .ST-MED ONE Stop: 03/10/17 10:02
[2017-03-10] MEDS ORDERED: fentaNYL 100 MCG/2 ML SDV IVPUSH PRN (12:06)
--- NOTE | 2017-03-10 13:34 | PCM.POSTAN ---
POST ANESTHESIA ASSESSMENT - MENTAL STATUS Mental Status: alert, oriented - RESPIRATORY Respiratory Status: respiratory rate WNL, airway patent, O2 saturation stable - CARDIOVASCULAR CV Status: pulse rate WNL, blood pressure stable - GASTROINTESTINAL GI Status: no symptoms - POST OP HYDRATION Hydration Status: adequate & stable
[2017-03-10] MEDS ORDERED: Acetaminophen/HYDROcodone 325-5 MG Tab PO PRN (13:52)
[2017-03-10 14:15] VITALS: BP 129/73
--- NOTE | 2017-03-10 18:09 | OR ---
SURGEON: Ranjeet Hernández M.D. DATE OF PROCEDURE: 03/10/2017 PREOPERATIVE DIAGNOSIS: Left upper ureteral stone. POSTOPERATIVE DIAGNOSE: Left upper ureteral stone. OPERATION: Ureteroscopy, laser lithotripsy, and double-J stent placement. DESCRIPTION OF PROCEDURE: The patient is a general anesthesia, placed in dorsal lithotomy position, prepped and draped in sterile drapes. Cystourethroscopy was done that was normal. A guidewire and Glidewire were advanced in the left ureter all the way up into the renal pelvis alongside the stone. The left lower ureter was then dilated using the UroMax II balloon dilator to approximately 15-[place]. The rigid ureteroscope was advanced in the left ureter all the way up to where the stone was right below the UPJ on the left. The stone was treated with the laser until it was small enough to be removed for which the Zero tip basket was used. The Glidewire was removed. The guidewire was still in place, over which a 6- [place]hi 26 cm double-J stent was placed. The string at the end of the stent was taped to the inside of the left thigh, bladder was emptied, and the patient was moved to recovery room in good condition. PLAN: She comes to the office in 1 week to have the double-J stent removed. JOSE / DESIREE /[phone]
--- NOTE | 2017-03-10 21:02 | PCM48HPAN ---
Post Anesthesia Note - EVALUATION WITHIN 48HRS OF ANESTHETIC Vital Signs in Normal Range: Yes Patient Participated in Evaluation: Yes Respiratory Function Stable: Yes Airway Patent: Yes Cardiovascular Function Stable: Yes Hydration Status Stable: Yes Pain Control Satisfactory: Yes Nausea and Vomiting Control Satisfactory: Yes Mental Status Recovered: Yes
--- NOTE | 2017-03-11 10:52 | CR ---
EXAMINATION: Cystoscopy HISTORY: Kidney stone COMPARISON: CT dated 03/05/2017 TECHNIQUE: Single view FINDINGS/IMPRESSION: Single operative control films demonstrates a stent projecting over the left re nal collecting system.
== END 2017-03-10 15:30 | disposition home or self-care (01) ==
LOC: MW.SDS 08:56
PROVIDERS: ATTEND Urology
DX: N20.1 Calculus of ureter (principal); J44.9 Chronic obstructive pulmonary disease, unspecified; I10 Essential (primary) hypertension; K21.9 Gastro-esophageal reflux disease without esophagitis; E66.9 Obesity, unspecified; Z68.30 Body mass index [BMI] 30.0-30.9, adult; Z98.890 Other specified postprocedural states; Z98.51 Tubal ligation status; Z87.891 Personal history of nicotine dependence; Z91.09 Other allergy status, other than to drugs and biological substances; Z79.82 Long term (current) use of aspirin; Z79.899 Other long term (current) drug therapy
CPT/HCPCS: 52356; 76000; 88300; A9270; C1769; C2625; J0690; J1885; J2250; J2405; J3010; J7120; Q9966; 00918; J2704

== ENCOUNTER 2017-05-02 16:34 | Emergency (ER) | payer BC, MEDICARE ==
--- NOTE | 2017-05-02 18:57 | EDM.PDOC ---
ED HPI GENERAL MEDICAL PROBLEM - General Chief Complaint: General Stated Complaint: WEAK/TROUBLE BREATHING Time Seen by Provider: 05/02/17 17:41 - History of Present Illness INITIAL COMMENTS - FREE TEXT/NARRATIVE: History of present illness: []Patient has been feeling tired and has some chest tightness. She denies any chest pain and has had this feeling in the past and ended up having pneumonia where she is in ICU. Review of systems: As per history of present illness and below otherwise all systems reviewed and negative. Past medical history: As per history of present illness and as reviewed below otherwise noncontributory. Surgical history: As per history of present illness and as reviewed below otherwise noncontributory. Social history: No reported history of drug or alcohol abuse. Family history: As per history of present illness and as reviewed below otherwise noncontributory. Physical exam: General: Well developed, well nourished in NAD HEENT: Atraumatic, normocephalic, pupils reactive, negative for conjunctival pallor or scleral icterus, mucous membranes moist, throat clear, neck supple, nontender, trachea midline. No sinus tenderness to palpation Lungs: Clear to auscultation, breath sounds equal bilaterally, chest nontender. No rhonchi no chest wall tenderness Heart: S1S2, regular, negative for clicks, rubs, or JVD. Abdomen: Soft, nondistended, nontender. Negative for masses or hepatosplenomegaly. Negative for costovertebral tenderness. Pelvis: Stable nontender. Genitourinary: Deferred. Rectal: Deferred. Extremities: Atraumatic, RA changes in her joints negative for cords or calf pain. Neurovascular unremarkable. Neuro: Awake, alert, oriented. Cranial nerves II through XII unremarkable. Cerebellum unremarkable. Motor and sensory unremarkable throughout. Exam nonfocal. Diagnostics: []EKG normal sinus rhythm without ischemic changes labs normal chest x-ray negative for pneumonia Therapeutics: [] Impression: []Generalized weakness Plan: []Follow-up PMD return if symptoms worsen or change Definitive disposition and diagnosis as appropriate pending reevaluation and review of above. chest Pain Score (Numeric/FACES): 2 - Related Data Allergies Allergy/AdvReac Type Severity Reaction Status Date / Time mold Allergy Weakness Verified 05/02/17 17:06 Home Meds: Home Meds Albuterol Sulfate [Proair Hfa] 8.5 gm IH Q4HR PRN 05/02/17 [History] Meloxicam 15 mg PO DAILY PRN 05/02/17 [History] Past Medical History - Past Health History Medical/Surgical History: Denies Medical/Surgical History HEENT History: Reports: Allergic Rhinitis Other HEENT History: wears glasses Cardiovascular History: Reports: None Respiratory History: Reports: COPD Other Respiratory History: has rescue inhaler but does not use Gastrointestinal History: Reports: GERD Genitourinary History: Reports: None 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: Musculoskeletal History: Reports: Back Pain, Chronic, Neck Pain, Chronic, RA Other Musculoskeletal History: bulging discs in back Neurological History: Reports: Headaches, Chronic, Vertigo Other Neuro History: sinus headaches, has lumbar bulging discs, hx of motion sickness Psychiatric History: Reports: None Endocrine/Metabolic History: Reports: Obesity/BMI 30+ Hematologic History: Reports: None Immunologic History: Reports: None Oncologic (Cancer) History: Reports: None Dermatologic History: Reports: None - Infectious Disease History Infectious Disease History: Reports: Measles - Past Surgical History Head Surgeries/Procedures: Reports: None HEENT Surgical History: Reports: Tonsillectomy Respiratory Surgical History: Reports: None GI Surgical History: Reports: None Female Surgical History: Reports: Tubal Ligation, Other (See Below) Other Female Surgeries/Procedures: bilateral salpingectomy after failed BTL Endocrine Surgical History: Reports: None Neurological Surgical History: Reports: None Musculoskeletal Surgical History: Reports: None Social & Family History - Family History Family Medical History: Noncontributory HEENT: Reports: Cataract Cardiac: Reports: Heart Failure, Hypertension, [place], Prior Cardiac Arrest Musculoskeletal: Reports: Arthritis, Back pain, Chronic, Osteoporosis Endocrine/Metabolic: Reports: Diabetes, type II, IDDM Oncologic: Reports: Breast, Ovarian - Tobacco Use Smoking Status *Q: Former Smoker Years of Tobacco use: 20 Packs/Tins Daily: 1 Used Tobacco, but Quit: Yes Month Tobacco Last Used: 5 - Caffeine Use Caffeine Use: Reports: Coffee Caffeine Use Comment: One to two cups a day - Alcohol Use Days Per Week of Alcohol Use: 1 - Recreational Drug Use Recreational Drug Use: No Drug Use in Last 12 Months: No - Living Situation & Occupation Living situation: Reports: ED ROS GENERAL - Review of Systems Review Of Systems: See Below (See history of present illness) ED EXAM, GENERAL - Physical Exam Exam: See Below (See history of present illness) Course - Vital Signs Last Recorded V/S: Last Vital Signs Temp 36.8 C 05/02/17 17:09 Pulse 73 05/02/17 17:09 Resp 20 05/02/17 17:09 BP 199/90 H 05/02/17 17:09 Pulse Ox 95 05/02/17 17:09 - Orders/Labs/Meds Orders: Active Orders 24 hr Category Date Time Status EKG 12 Lead [EKG Documentation Completion] [RC] STAT Care 05/02/17 18:20 Active Chest 2V [CR] Stat Exams 05/02/17 17:49 Taken Labs: Laboratory Tests 05/02/17 05/02/17 Range/Units 17:57 17:57 WBC 8.59 (4.0-11.0) K/uL RBC 4.72 (4.30-5.90) M/uL Hgb 13.1 (12.0-16.0) g/dL Hct 39.0 (36.0-46.0) % MCV 82.6 (80.0-98.0) fL MCH 27.8 (27.0-32.0) pg MCHC 33.6 (31.0-37.0) g/dL RDW Std Deviation 41.0 (28.0-62.0) fl RDW Coeff of Edy 14 (11.0-15.0) % Plt Count 307 (150-400) K/uL MPV 9.30 (7.40-12.00) fL Neut % (Auto) 56.5 (48.0-80.0) % Lymph % (Auto) 32.8 (16.0-40.0) % [place] % (Auto) 5.8 (0.0-15.0) % Eos % (Auto) 4.4 (0.0-7.0) % Baso % (Auto) 0.5 (0.0-1.5) % Neut # (Auto) 4.9 (1.4-5.7) K/uL Lymph # (Auto) 2.8 H (0.6-2.4) K/uL [place] # (Auto) 0.5 (0.0-0.8) K/uL Eos # (Auto) 0.4 (0.0-0.7) K/uL Baso # (Auto) 0.0 (0.0-0.1) K/uL Nucleated RBC % 0.0 /100WBC Nucleated RBCs # 0 K/uL Sodium 137 (136-146) mmol/L Potassium 4.3 (3.5-5.1) mmol/L Chloride 104 (98-110) mmol/L Carbon Dioxide 23 (21-31) mmol/L BUN 20 (6.0-23.0) mg/dL Creatinine 1.1 (0.6-1.5) mg/dL Est Cr Clr Drug Dosing 40.86 mL/min Estimated GFR (MDRD) 50.0 ml/min Glucose 100 (60-110) mg/dL Calcium 9.7 (8.8-10.8) mg/dL Total Bilirubin 0.3 (0.1-1.5) mg/dL AST 17 (5-40) IU/L ALT 16 (8-54) IU/L Alkaline Phosphatase 100 (40-150) Total Protein 8.0 (6.0-8.0) g/dL Albumin 4.0 (3.4-4.8) g/dL Globulin 4.0 H (2.0-3.5) g/dL Albumin/Globulin Ratio 1.0 L (1.3-2.8) Departure - Departure Time of Disposition: 18:56 Disposition: Home, Self-Care 01 Condition: Good Clinical Impression: Generalized weakness Clinical Impression: (Ruled Out): Fatigue - Discharge Information Forms: ED Department Discharge Additional Instructions: The following information is given to patients seen in the emergency department who are being discharged to home. This information is to outline your options for follow-up care. We provide all patients seen in our emergency department with a follow-up referral. The need for follow-up, as well as the timing and circumstances, are variable depending upon the specifics of your emergency department visit. If you don't have a primary care physician on staff, we will provide you with a referral. We always advise you to contact your personal physician following an emergency department visit to inform them of the circumstance of the visit and for follow-up with them and/or the need for any referrals to a consulting specialist. The emergency department will also refer you to a specialist when appropriate. This referral assures that you have the opportunity for follow-up care with a specialist. All of these measure are taken in an effort to provide you with optimal care, which includes your follow-up. Under all circumstances we always encourage you to contact your private physician who remains a resource for coordinating your care. When calling for follow-up care, please make the office aware that this follow-up is from your recent emergency room visit. If for any reason you are refused follow-up, please contact the [facility] at and asked to speak to the emergency department charge nurse. Follow-up PMD for further workup return if symptoms worsen or change [facility] [address] [place] [id number] - My Orders Last 24 Hours: My Active Orders 05/02/17 17:49 Chest 2V [CR] Stat 05/02/17 18:20 EKG 12 Lead [EKG Documentation Completion] [RC] STAT - Assessment/Plan Last 24 Hours: My Active Orders 05/02/17 17:49 Chest 2V [CR] Stat 05/02/17 18:20 EKG 12 Lead [EKG Documentation Completion] [RC] STAT
[2017-05-02 19:04] VITALS: BP 196/84
--- NOTE | 2017-05-04 13:50 | CR ---
EXAM DATE: 05/02/17 PATIENT'S AGE: 66 Patient: RAFFI RAINES Facility: [place], [place] Site . Site : 1950 Study: XRay Chest [id number]/22/2017 6:24:54 PM Ordering Physician: Milton Batista Final Report: INDICATION: COUGH FOR 5 DAYS AND WEAKNESS TECHNIQUE: Chest 2 views. COMPARISON: None. FINDINGS: Cardiovascular and mediastinum: Heart size and vasculature are normal in caliber and appearance. Mediastinum is within normal limits. Lungs and pleural spaces: Lungs are clear. No sign of infiltrate or mass. No sign of pleural effusion. No pneumothorax. Bones and soft tissues: No significant findings. IMPRESSION: Unremarkable chest. Dictated by: Octaviano Grossman MD @ 05/02/2017 18:39:24 (Electronic Signature) Report Signed by Proxy. [facility] CENTERJackie
== END 2017-05-02 19:20 | disposition home or self-care (01) ==
LOC: MW.ED 16:34
DX: R53.1 Weakness (principal); E66.9 Obesity, unspecified; K21.9 Gastro-esophageal reflux disease without esophagitis; Z79.899 Other long term (current) drug therapy; Z98.890 Other specified postprocedural states; Z87.891 Personal history of nicotine dependence
CPT/HCPCS: 36415; 71020; 71020-26; 80053; 85025; 93005; 99282; 99285-25

== ENCOUNTER 2021-02-17 17:21 | Observation (INO) | payer MEDICARE, BC ==
[2021-02-17] MEDS ORDERED: hydrALAZINE 20 MG/ML SDV IVPUSH ONE (17:49)
--- NOTE | 2021-02-17 17:53 | EDM.PDOC ---
<Girish Duff - Last Filed: 02/17/21 18:43> ED HPI GENERAL MEDICAL PROBLEM - General Chief Complaint: Cardiovascular Problem Stated Complaint: HIGH BP, DIARRHEA Time Seen by Provider: 02/17/21 17:31 Source of Information: Reports: Patient History Limitations: Reports: No Limitations - History of Present Illness INITIAL COMMENTS - FREE TEXT/NARRATIVE: Patient is a 70-year-old female with a history of high blood pressure and COPD who presents today for elevated BP. Patient states that she decided for most of the week and she has new granddaughter and was at home today and is felt off felt as if she was lightheaded she is in a pass out and has some chest pressure. She took her blood pressures although closer to 200 she came in for evaluation. Patient has no neurological symptoms such as numbness weakness or other extremities no altered mental status no urinary symptoms. Patient denies any other medical complaints. - Related Data Allergies Allergy/AdvReac Type Severity Reaction Status Date / Time mold Allergy Weakness Verified 05/02/17 17:06 Home Meds: Home Meds Albuterol Sulfate [Proair Hfa] 8.5 gm IH Q4HR PRN 05/02/17 [History] hydroCHLOROthiazide [Hydrochlorothiazide] 12.5 mg PO BID 02/17/21 [History] Past Medical History - Past Health History Medical/Surgical History: Denies Medical/Surgical History HEENT History: Reports: Impaired Vision Other HEENT History: wears glasses Cardiovascular History: Reports: Hypertension Respiratory History: Reports: COPD, SOB Other Respiratory History: recent pneumonia Gastrointestinal History: Reports: Other (See Below) Other Gastrointestinal History: stomach upset Genitourinary History: Reports: Renal Calculus, Urinary Incontinence 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: Reports: , Other (See Below) Other 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 History: tubal removal Musculoskeletal History: Reports: Neck Pain, Chronic Other Musculoskeletal History: bulging discs in back Neurological History: Reports: Headaches, Chronic, Vertigo Other Neuro History: sinus headaches, has lumbar bulging discs, hx of motion sickness Psychiatric History: Reports: None Endocrine/Metabolic History: Reports: Obesity/BMI 30+ Hematologic History: Reports: None Immunologic History: Reports: None Oncologic (Cancer) History: Reports: None Dermatologic History: Reports: None - Infectious Disease History Infectious Disease History: Reports: Measles - Past Surgical History Head Surgeries/Procedures: Reports: None HEENT Surgical History: Reports: Tonsillectomy Cardiovascular Surgical History: Reports: None Respiratory Surgical History: Reports: None GI Surgical History: Reports: None Female Surgical History: Reports: Tubal Ligation, Other (See Below) Other Female Surgeries/Procedures: Tubes removed but not ovaries,kidney stone removed Endocrine Surgical History: Reports: None Neurological Surgical History: Reports: None Musculoskeletal Surgical History: Reports: Carpal Tunnel Social & Family History - Family History Family Medical History: No Pertinent Family History HEENT: Reports: Cataract Cardiac: Reports: Heart Failure, Hypertension, [place], Prior Cardiac Arrest Musculoskeletal: Reports: Arthritis, Back pain, Chronic, Osteoporosis Endocrine/Metabolic: Reports: Diabetes, type II, IDDM Oncologic: Reports: Breast, Ovarian - Tobacco Use Tobacco Use Status *Q: Former Tobacco User Used Tobacco, but Quit: Yes Month/Year Tobacco Last Used: 5 yrs ago Second Hand Smoke Exposure: No - Caffeine Use Caffeine Use: Reports: Coffee Caffeine Use Comment: One to two cups a day - Recreational Drug Use Recreational Drug Use: No - Living Situation & Occupation Living situation: Reports: ED ROS GENERAL - Review of Systems Review Of Systems: See Below Constitutional: Reports: No Symptoms HEENT: Reports: No Symptoms Respiratory: Reports: No Symptoms Cardiovascular: Reports: Chest Pain Endocrine: Reports: No Symptoms GI/Abdominal: Reports: No Symptoms : Reports: No Symptoms Musculoskeletal: Reports: No Symptoms Skin: Reports: No Symptoms Neurological: Reports: Dizziness Psychiatric: Reports: No Symptoms Hematologic/Lymphatic: Reports: No Symptoms Immunologic: Reports: No Symptoms ED EXAM, GENERAL - Physical Exam Exam: See Below Exam Limited By: No Limitations General Appearance: Alert, WD/WN, No Apparent Distress Respiratory/Chest: No Respiratory Distress, Lungs Clear, Normal Breath Sounds Cardiovascular: Normal Peripheral Pulses, Regular Rate, Rhythm GI/Abdominal: Normal Bowel Sounds, Soft, Non-Tender Neurological: Alert, Oriented, CN II-XII Intact, Normal Cognition, Normal Gait #1 Interpretation EKG Date: 02/17/21 Time: 17:27 Rhythm: NSR Rate (Beats/Min): 81 EKG Interpretation Comments: inverted twaves in [id number] Departure - Departure Disposition: Refer to Observation Clinical Impression: Chest pain, Acute electrocardiogram changes, Hypertension Referrals: Soto Ruano MD [Primary Care Provider] - Forms: ED Department Discharge Sepsis Event Note (ED) - Evaluation Sepsis Screening Result: No Definite Risk - Assessment/Plan Plan: Patient is a 70-year-old female who presents today for dizziness and chest pressure and elevated blood pressure. Patient does have some new inverted T waves on EKG in V4 V5 V6 new from previous EKG in 2017. Will obtain labs CT head and address blood pressure and reassess. <Abhinav Ren - Last Filed: 02/17/21 21:05> Course - Vital Signs Text/Narrative:: 1940 hrs. I went back to the patient he was turned over to me at the end of Dr. Duff shift. The patient has no chest pain since he arrived. Her chest pain started at 4 PM and continued until shortly after she arrived here. The concern Dr. Duff described to me was that the patient had inverted T waves in her EKG that were new since the prior EKG. Patient is known to have COPD but not coronary vessel disease. Patient's pain was a burning not a pain. She also had a headache and dizziness was more concerned about her blood pressure. Blood pressure is controlled now but climbing slightly. 2010 hrs. patient feels little confused. Blood pressure up to 162 after having been down in the low 140s. Discussed with Dr. Rogers who requests some amlodipine 10 mg to prevent the blood pressure from skyrocketing again. She wants a troponin delta now if it is not going up put the patient in observation telemetry. 2103 hrs. patient's second troponin is negative and she will be kept here for formal rule out, control of blood pressure, and repeat EKG in the morning. Last Recorded V/S: Last Vital Signs Temp 36.8 C 02/17/21 17:26 Pulse 69 02/17/21 18:51 Resp 22 H 02/17/21 18:51 BP 179/53 H 02/17/21 20:28 Pulse Ox 96 02/17/21 18:51 - Orders/Labs/Meds Orders: Active Orders 24 hr Category Date Time Status Admission Status [Patient Status] [ADT] Stat ADT 02/17/21 21:02 Ordered CORONAVIRUS COVID-19 ESTHELA [MOLEC] Stat Lab 02/17/21 20:20 Received Labs: Laboratory Tests 02/17/21 02/17/21 02/17/21 Range/Units 17:32 17:32 20:18 WBC 12.00 H (4.0-11.0) K/uL RBC 5.04 (4.30-5.90) M/uL Hgb 14.6 (12.0-16.0) g/dL Hct 43.1 (36.0-46.0) % MCV 85.5 (80.0-98.0) fL MCH 29.0 (27.0-32.0) pg MCHC 33.9 (31.0-37.0) g/dL RDW Std Deviation 43.8 (28.0-62.0) fl RDW Coeff of Edy 14 (11.0-15.0) % Plt Count 338 (150-400) K/uL MPV 10.30 (7.40-12.00) fL Neut % (Auto) 57.5 (48.0-80.0) % Lymph % (Auto) 32.8 (16.0-40.0) % [place] % (Auto) 5.8 (0.0-15.0) % Eos % (Auto) 3.5 (0.0-7.0) % Baso % (Auto) 0.4 (0.0-1.5) % Neut # (Auto) 6.9 H (1.4-5.7) K/uL Lymph # (Auto) 3.9 H (0.6-2.4) K/uL [place] # (Auto) 0.7 (0.0-0.8) K/uL Eos # (Auto) 0.4 (0.0-0.7) K/uL Baso # (Auto) 0.1 (0.0-0.1) K/uL Nucleated RBC % 0.0 /100WBC Nucleated RBCs # 0 K/uL Sodium 139 (136-145) mmol/L Potassium 3.5 (3.5-5.1) mmol/L Chloride 100 (98-107) mmol/L Carbon Dioxide 25.6 (21.0-32.0) mmol/L BUN 21 H (7.0-18.0) mg/dL Creatinine 1.6 H (0.6-1.0) mg/dL Est Cr Clr Drug Dosing 26.62 mL/min Estimated GFR (MDRD) 32.1 ml/min Glucose 146 H (74-106) mg/dL Calcium 8.9 (8.5-10.1) mg/dL Magnesium 1.9 (1.8-2.4) mg/dL Total Bilirubin 0.3 (0.2-1.0) mg/dL AST 17 (15-37) IU/L ALT 26 (14-63) IU/L Alkaline Phosphatase 120 H (46-116) U/L Creatine Kinase 57 (26-308) U/L Troponin I < 0.050 < 0.050 (0.000-0.056) ng/mL Total Protein 8.8 H (6.4-8.2) g/dL Albumin 3.7 (3.4-5.0) g/dL Globulin 5.1 H (2.6-4.0) g/dL Albumin/Globulin Ratio 0.7 L (0.9-1.6) Lipase 200 (73-393) U/L Meds: Medications Discontinued Medications Generic Name Dose Route Start Last Admin Trade Name Freq PRN Reason Stop Dose Admin Amlodipine Besylate 10 mg 02/17/21 20:10 02/17/21 20:28 Amlodipine 5 Mg Tab PO 02/17/21 20:11 10 mg ONETIME ONE Administration Hydralazine HCl 5 mg 02/17/21 17:49 02/17/21 18:15 Hydralazine 20 Mg/Ml Sdv IVPUSH 02/17/21 17:50 5 mg ONETIME ONE Administration Departure - Departure Time of Disposition: 21:30 Condition: Good Sepsis Event Note (ED) - Focused Exam Vital Signs: Vital Signs Temp Pulse Resp BP BP Pulse Ox 02/17/21 20:28 179/53 H 02/17/21 18:51 69 22 H 157/70 H 96 02/17/21 18:46 72 17 173/68 H 95 02/17/21 17:26 36.8 C 85 18 206/93 H 96 - My Orders Last 24 Hours: My Active Orders 02/17/21 20:20 CORONAVIRUS COVID-19 ESTHELA [MOLEC] Stat 02/17/21 21:02 Admission Status [Patient Status] [ADT] Stat - Assessment/Plan Last 24 Hours: My Active Orders 02/17/21 20:20 CORONAVIRUS COVID-19 ESTHELA [MOLEC] Stat 02/17/21 21:02 Admission Status [Patient Status] [ADT] Stat
[2021-02-17 18:07] LABS: BLOOD UREA NITROGEN,BUN 21 mg/dL (7.0-18.0); GLUCOSE RANDOM 146 mg/dL (74-106); LIPASE 200 U/L (73-393)
--- NOTE | 2021-02-17 18:33 | CR ---
Indication: Chest pressure elevated BP Technique: Two-view chest Comparison: Chest x-ray 05/02/2017 no report available Findings: Normal cardiac mediastinal silhouette basilar atelectasis or scarring. Lungs are clear of an acute airspace or interstitial process. No effusion or pneumothorax. Dictated by Julita Barry MD @ 02/17/2021 6:33:[address] Julita Barry @ Feb 17 2021 6:33PM
--- NOTE | 2021-02-17 19:00 | CT ---
Indication: Dizziness elevated BP Technique: Noncontrast head CT Comparison: Head CT 01/22/2016 Findings: Axial noncontrast images through the brain parenchyma demonstrates no acute intracranial hemorrhage mass or midline shift. No abnormal extra-axial air fluid collections are seen. Paranasal sinuses, mastoid air cells, skull and scalp appear unremarkable. Impression: No acute intracranial hemorrhage or mass. Please note that all CT scans at this facility use dose modulation, iterative reconstruction, and/or weight-based dosing when appropriate to reduce radiation dose to as low as reasonably achievable. Dictated by Julita Barry MD @ 02/17/2021 6:58:[address] Julita Barry @ Feb 17 2021 6:58PM
[2021-02-17 20:03] LABS: CARBON DIOXIDE,CO2 25.6 mmol/L (21.0-32.0); CHLORIDE,CL 100 mmol/L (98-107); POTASSIUM,K 3.5 mmol/L (3.5-5.1); SODIUM,NA 139 mmol/L (136-145)
[2021-02-17] MEDS ORDERED: amLODIPine 5 MG Tab PO ONE (20:10)
[2021-02-17] MEDS ORDERED: Ondansetron 4 MG/2 ML SDV IVPUSH PRN (22:21)
[2021-02-17] MEDS ORDERED: Morphine 2 MG/ML SYRINGE IVPUSH PRN (22:21)
[2021-02-17] MEDS ORDERED: Albuterol/Ipratropium 3.0-0.5 MG/3 ML Neb Soln NEB PRN (22:21)
[2021-02-17] MEDS ORDERED: Labetalol 100 MG/20 ML MDV IVPUSH PRN (22:24)
--- NOTE | 2021-02-17 23:58 | PCM.HP.2 ---
H&P History of Present Illness - General Date of Service: 02/17/21 Admit Problem/Dx: Admission Diagnosis/Problem Admission Diagnosis/Problem Chest pain - History of Present Illness Initial Comments - Free Text/Narative: Patient is a 70-year-old female with past medical history of hypertension, rheumatoid arthritis, COPD, hyperlipidemia who comes to the ER for evaluation of her increased blood pressure. Patient states that her daughter recently gave so she has been helping her out to take care of the baby. Patient states that she felt a little off today with some lightheadedness and some chest pain. When patient arrived to the ER her blood pressure was high with systolic blood pressure in 200s. Patient received IV hydralazine with some improvement in the blood pressure. Patient was later also given oral amlodipine. Troponin was checked which was negative. Rest of the labs were unremarkable except for some kidney dysfunction. Patient states that she has been eating and drinking just fine. Patient states that her blood pressure has been well controlled with hydrochlorothiazide but it seems like for last 2 days her blood pressure has been on the higher side. Patient states that she has been tried on other antihypertensive pills but all of them make her feel sick and only hydrochlor othiazide is the one she is able to tolerate. Patient supposedly was started on medications for hyper lipidemia but she did not want to take any meds because she feels like she will feel sick if she takes them. Patient states that she is extremely sensitive to steroids and gets really sick when she takes them. Patient denies any palpitations any nausea, vomiting, abdominal pain, diarrhea. Patient did complain of some headache after she received hydralazine, she also felt a " little foggy". States that her urine smells very bad and thinks she has a UTI. Patient had no neurological deficits. Patient's chest pain had resolved by the time I saw her, patient was admitted for further management - Related Data Allergies/Adverse Reactions: Allergies Allergy/AdvReac Type Severity Reaction Status Date / Time mold Allergy Weakness Verified 02/17/21 22:30 Home Medications: Home Meds Albuterol Sulfate [Proair Hfa] 8.5 gm IH Q4HR PRN 05/02/17 [History] hydroCHLOROthiazide [Hydrochlorothiazide] 12.5 mg PO BID 02/17/21 [History] Past Medical History - Past Health History Medical/Surgical History: Denies Medical/Surgical History HEENT History: Reports: Impaired Vision Other HEENT History: wears glasses Cardiovascular History: Reports: Hypertension Respiratory History: Reports: COPD, SOB Other Respiratory History: recent pneumonia Gastrointestinal History: Reports: Other (See Below) Other Gastrointestinal History: stomach upset Genitourinary History: Reports: Renal Calculus, Urinary Incontinence PELLETIZER History: Reports: , Other (See Below) Other OB/BYN History: tubal removal Musculoskeletal History: Reports: Neck Pain, Chronic Other Musculoskeletal History: bulging discs in back Neurological History: Reports: Headaches, Chronic, Vertigo Other Neuro History: sinus headaches, has lumbar bulging discs, hx of motion sickness Psychiatric History: Reports: None Endocrine/Metabolic History: Reports: Obesity/BMI 30+ Hematologic History: Reports: None Immunologic History: Reports: None Oncologic (Cancer) History: Reports: None Dermatologic History: Reports: None - Infectious Disease History Infectious Disease History: Reports: Measles - Past Surgical History Head Surgeries/Procedures: Reports: None HEENT Surgical History: Reports: Tonsillectomy Cardiovascular Surgical History: Reports: None Respiratory Surgical History: Reports: None GI Surgical History: Reports: None Female Surgical History: Reports: Tubal Ligation, Other (See Below) Other Female Surgeries/Procedures: Tubes removed but not ovaries,kidney stone removed Endocrine Surgical History: Reports: None Neurological Surgical History: Reports: None Musculoskeletal Surgical History: Reports: Carpal Tunnel Social & Family History - Family History Family Medical History: No Pertinent Family History HEENT: Reports: Cataract Cardiac: Reports: Heart Failure, Hypertension, VA, Prior Cardiac Arrest Musculoskeletal: Reports: Arthritis, Back pain, Chronic, Osteoporosis Endocrine/Metabolic: Reports: Diabetes, type II, IDDM Oncologic: Reports: Breast, Ovarian - Tobacco Use Tobacco Use Status *Q: Former Tobacco User Years of Tobacco use: 45 Used Tobacco, but Quit: Yes Month/Year Tobacco Last Used: 10/2015 Second Hand Smoke Exposure: No - Caffeine Use Caffeine Use: Reports: Coffee Caffeine Use Comment: One to two cups a day - Recreational Drug Use Recreational Drug Use: Yes Drug Use in Last 12 Months: Yes Recreational Drug Type: Reports: Marijuana/Hashish - Living Situation & Occupation Living situation: Reports: H&P Review of Systems - Review of Systems: Review Of Systems: See Below General: Denies: Fever, Chills, Malaise, Weakness Pulmonary: Denies: Shortness of Breath, Wheezing Cardiovascular: Denies: Chest Pain, Palpitations, Dyspnea on Exertion Gastrointestinal: Denies: Abdominal Pain, Anorexia, Black Stool Genitourinary: Reports: Burning, Urgency. Denies: Dysuria, Frequency Musculoskeletal: Denies: Neck Pain, Shoulder Pain, Arm Pain Skin: Denies: Cyanosis, Jaundice, Mottled Psychiatric: Denies: Confusion, Depression, Mood Lability Neurological: Reports: Headache. Denies: Confusion, Dizziness, Numbness, Pares thesia Exam - Exam Exam: See Below - Vital Signs Vital Signs: Last Vital Signs Temp 36.6 C 02/17/21 22:00 Pulse 70 02/17/21 22:00 Resp 18 02/17/21 22:00 BP 183/84 H 02/17/21 22:00 Pulse Ox 96 02/17/21 22:00 Weight: 82.282 kg - Exam General: Alert, Oriented, Cooperative Neck: Supple, Trachea Midline Lungs: Clear to Auscultation, Normal Respiratory Effort Cardiovascular: Regular Rate, Regular Rhythm, Normal S1, Normal S2 GI/Abdominal Exam: Normal Bowel Sounds, Soft, Non-Tender Extremities: Normal Inspection, Normal Range of Motion, Non-Tender Skin: Warm Neurological: Cranial Nerves Intact, Reflexes Equal Bilateral Neuro Extensive - Mental Status: Alert, Oriented x3, Normal Mood/Affect, Normal Cognition Neuro Extensive - Motor, Sensory, Reflexes: CN II-XII Intact, Normal Reflexes. No: Total Aphasia, Facial palsy (L), Hemeplagia (R), Hemeplagia (L), Pronator Drift (L) - Patient Data Lab Results Last 24 hrs: Laboratory Results - last 24 hr 02/17/21 02/17/21 02/17/21 Range/Units 17:32 17:32 20:18 WBC 12.00 H (4.0-11.0) K/uL RBC 5.04 (4.30-5.90) M/uL Hgb 14.6 (12.0-16.0) g/dL Hct 43.1 (36.0-46.0) % MCV 85.5 (80.0-98.0) fL MCH 29.0 (27.0-32.0) pg MCHC 33.9 (31.0-37.0) g/dL RDW Std Deviation 43.8 (28.0-62.0) fl RDW Coeff of Edy 14 (11.0-15.0) % Plt Count 338 (150-400) K/uL MPV 10.30 (7.40-12.00) fL Neut % (Auto) 57.5 (48.0-80.0) % Lymph % (Auto) 32.8 (16.0-40.0) % Worth % (Auto) 5.8 (0.0-15.0) % Eos % (Auto) 3.5 (0.0-7.0) % Baso % (Auto) 0.4 (0.0-1.5) % Neut # (Auto) 6.9 H (1.4-5.7) K/uL Lymph # (Auto) 3.9 H (0.6-2.4) K/uL Worth # (Auto) 0.7 (0.0-0.8) K/uL Eos # (Auto) 0.4 (0.0-0.7) K/uL Baso # (Auto) 0.1 (0.0-0.1) K/uL Nucleated RBC % 0.0 /100WBC Nucleated RBCs # 0 K/uL Sodium 139 (136-145) mmol/L Potassium 3.5 (3.5-5.1) mmol/L Chloride 100 (98-107) mmol/L Carbon Dioxide 25.6 (21.0-32.0) mmol/L BUN 21 H (7.0-18.0) mg/dL Creatinine 1.6 H (0.6-1.0) mg/dL Est Cr Clr Drug Dosing 26.62 mL/min Estimated GFR (MDRD) 32.1 ml/min Glucose 146 H (74-106) mg/dL Calcium 8.9 (8.5-10.1) mg/dL Magnesium 1.9 (1.8-2.4) mg/dL Total Bilirubin 0.3 (0.2-1.0) mg/dL AST 17 (15-37) IU/L ALT 26 (14-63) IU/L Alkaline Phosphatase 120 H (46-116) U/L Creatine Kinase 57 (26-308) U/L Troponin I < 0.050 < 0.050 (0.000-0.056) ng/mL Total Protein 8.8 H (6.4-8.2) g/dL Albumin 3.7 (3.4-5.0) g/dL Globulin 5.1 H (2.6-4.0) g/dL Albumin/Globulin Ratio 0.7 L (0.9-1.6) Lipase 200 (73-393) U/L SARS-CoV-2 RNA (ESTHELA) (NEGATIVE) 02/17/21 Range/Units 20:20 WBC (4.0-11.0) K/uL RBC (4.30-5.90) M/uL Hgb (12.0-16.0) g/dL Hct (36.0-46.0) % MCV (80.0-98.0) fL MCH (27.0-32.0) pg MCHC (31.0-37.0) g/dL RDW Std Deviation (28.0-62.0) fl RDW Coeff of Edy (11.0-15.0) % Plt Count (150-400) K/uL MPV (7.40-12.00) fL Neut % (Auto) (48.0-80.0) % Lymph % (Auto) (16.0-40.0) % Worth % (Auto) (0.0-15.0) % Eos % (Auto) (0.0-7.0) % Baso % (Auto) (0.0-1.5) % Neut # (Auto) (1.4-5.7) K/uL Lymph # (Auto) (0.6-2.4) K/uL Worth # (Auto) (0.0-0.8) K/uL Eos # (Auto) (0.0-0.7) K/uL Baso # (Auto) (0.0-0.1) K/uL Nucleated RBC % /100WBC Nucleated RBCs # K/uL Sodium (136-145) mmol/L Potassium (3.5-5.1) mmol/L Chloride (98-107) mmol/L Carbon Dioxide (21.0-32.0) mmol/L BUN (7.0-18.0) mg/dL Creatinine (0.6-1.0) mg/dL Est Cr Clr Drug Dosing mL/min Estimated GFR (MDRD) ml/min Glucose (74-106) mg/dL Calcium (8.5-10.1) mg/dL Magnesium (1.8-2.4) mg/dL Total Bilirubin (0.2-1.0) mg/dL AST (15-37) IU/L ALT (14-63) IU/L Alkaline Phosphatase (46-116) U/L Creatine Kinase (26-308) U/L Troponin I (0.000-0.056) ng/mL Total Protein (6.4-8.2) g/dL Albumin (3.4-5.0) g/dL Globulin (2.6-4.0) g/dL Albumin/Globulin Ratio (0.9-1.6) Lipase (73-393) U/L SARS-CoV-2 RNA (ESTHELA) NEGATIVE (NEGATIVE) Result Diagrams: 02/17/21 17:32 02/17/21 17:32 Sepsis Event Note - Evaluation Sepsis Screening Result: No Definite Risk - Focused Exam Vital Signs: Vital Signs Temp Pulse Resp BP BP Pulse Ox 02/17/21 22:00 36.6 C 70 18 183/84 H 96 02/17/21 21:15 36.4 C 67 18 159/77 H 97 02/17/21 20:28 179/53 H 02/17/21 18:51 69 22 H 157/70 H 96 02/17/21 18:46 72 17 173/68 H 95 02/17/21 17:26 36.8 C 85 18 206/93 H 96 - Problem List (1) Hypertensive urgency SNOMED Code(s): 698922365 ICD Code: I16.0 - HYPERTENSIVE URGENCY Status: Acute Current Visit: Yes (2) Hyperlipidemia SNOMED Code(s): 01839788 ICD Code: E78.5 - HYPERLIPIDEMIA, UNSPECIFIED Status: Acute Current Visit: Yes (3) Rheumatoid arthritis SNOMED Code(s): 15607760 ICD Code: M06.9 - RHEUMATOID ARTHRITIS, UNSPECIFIED Status: Acute Current Visit: Yes (4) Chest pain SNOMED Code(s): 24379675 ICD Code: R07.9 - CHEST PAIN, UNSPECIFIED Status: Acute Current Visit: Y es (5) COPD (chronic obstructive pulmonary disease) SNOMED Code(s): 67808424 ICD Code: J44.9 - CHRONIC OBSTRUCTIVE PULMONARY DISEASE, UNSPECIFIED Status: Chronic Current Visit: No Qualifiers: COPD type: unspecified COPD Qualified Code(s): J44.9 - Chronic obstructive pulmonary disease, unspecified Problem List Initiated/Reviewed/Updated: Yes Orders Last 24hrs: Active Orders 24 hr Category Date Time Status Admission Status [Patient Status] [ADT] Stat ADT 02/17/21 22:19 Active Ambulate [RC] ASDIRECTED Care 02/17/21 22:21 Active Antiembolic Devices [RC] PER UNIT ROUTINE Care 02/17/21 22:22 Active Oxygen Therapy [RC] PRN Care 02/17/21 22:21 Active RT Aerosol Therapy [RC] ASDIRECTED Care 02/17/21 22:22 Active VTE/DVT Education [RC] PER UNIT ROUTINE Care 02/17/21 22:21 Active Vital Signs [RC] Q4H Care 02/17/21 22:21 Active Heart Healthy Diet [DIET] Diet 02/18/21 Breakfast Active Echo Comp wo Cont [US] Routine Exams 02/17/21 22:27 Ordered BMP [BASIC METABOLIC PANEL,BMP] [CHEM] AM Lab 02/18/21 05:11 Ordered CBC WITH AUTO DIFF [HEME] AM Lab 02/18/21 05:11 Ordered GLYCOSYLATED HEMOGLOBIN,HGBA1C [CHEM] AM Lab 02/18/21 05:11 Ordered LIPID PANEL [CHEM] AM Lab 02/18/21 05:11 Ordered MAGNESIUM [CHEM] AM Lab 02/18/21 05:11 Ordered PHOSPHORUS [CHEM] AM Lab 02/18/21 05:11 Ordered TROPONIN I [CHEM] Routine Lab 02/17/21 23:40 Received TSH [CHEM] AM Lab 02/18/21 05:11 Ordered Acetaminophen [TylenoL] Med 02/17/21 22:21 Active 650 mg PO Q4H PRN Albuterol/Ipratropium [DuoNeb 3.0-0.5 MG/3 ML] Med 02/17/21 22:21 Active 3 ml NEB Q4HRRT PRN Labetalol [Normodyne] Med 02/17/21 22:24 Active 20 mg IVPUSH Q4H PRN Morphine Med 02/17/21 22:21 Active 1 mg IVPUSH Q4H PRN Ondansetron [Zofran] Med 02/17/21 22:21 Active 4 mg IVPUSH Q4H PRN amLODIPine [Norvasc] Med 02/18/21 09:00 Active 10 mg PO DAILY hydroCHLOROthiazide Med 02/18/21 09:00 Active 12.5 mg PO BID Sequential Compression Device [OM.PC] Per Unit Routine Oth 02/17/21 22:21 Ordered Resuscitation Status Routine Resus Stat 02/17/21 22:21 Ordered Medication Orders Acetaminophen (Acetaminophen 325 Mg Tab) 650 mg PO Q4H PRN PRN Reason: Pain (Mild 1-3)/fever Albuterol/Ipratropium (Albuterol/Ipratropium 3.0-0.5 Mg/3 Ml Neb Soln) 3 ml NEB Q4HRRT PRN PRN Reason: Shortness Of Breath/wheezing Amlodipine Besylate (Amlodipine 5 Mg Tab) 10 mg PO DAILY MARJORIE Hydrochlorothiazide (Hydrochlorothiazide 12.5 Mg Cap) 12.5 mg PO BID MARJORIE Labetalol HCl (Labetalol 100 Mg/20 Ml Mdv) 20 mg IVPUSH Q4H PRN; Protocol PRN Reason: Hypertension Morphine Sulfate (Morphine 2 Mg/Ml Syringe) 1 mg IVPUSH Q4H PRN PRN Reason: Pain (severe 7-10) Stop: 02/18/21 22:22 Ondansetron HCl (Ondansetron 4 Mg/2 Ml Sdv) 4 mg IVPUSH Q4H PRN PRN Reason: Nausea/Vomiting Assessment/Plan Comment:: 70-year-old female admitted for hypertensive urgency Received IV hydralazine oral amlodipine We will start patient on IV labetalol as needed for systolic blood pressure more than 180 Patient's chest pain has resolved, troponin x2 have been negative we will check 1 more set of troponin We will continue to monitor on telemetry We will start patient on oral amlodipine in addition to hydrochlorothiazide We will check lipid panel, TSH, lites and hemoglobin in a.m. We will obtain 2D echo Patient has mild kidney dysfunction possibly related to uncontrolled hypertensi on we will repeat kidney function in a.m., I do not believe is prerenal so we will hold off on IV fluids as patient is eating and drinking well We will check UA to rule out UTI as patient is complaining of symptoms for UTI Resume home meds as appropriate
[2021-02-18] MEDS: Acetaminophen 325 MG Tab PO PRN ×2 (00:18→12:19)
[2021-02-18 06:26] LABS: HEMOGLOBIN A1C 6.9 %
[2021-02-18 06:38] LABS: POTASSIUM,K 3.8 mmol/L (3.5-5.1)
[2021-02-18] MEDS ORDERED: amLODIPine 5 MG Tab PO SCH (09:00)
[2021-02-18] MEDS ORDERED: Hydrochlorothiazide 12.5 MG Cap PO SCH (09:00)
[2021-02-18 09:05] VITALS: BP 121/58
[2021-02-18 09:08] VITALS: PULSE 67
--- NOTE | 2021-02-18 11:39 | PCM.DCSUM1 ---
Discharge Summary - Hospital Course Brief History: Patient is a 70-year-old female with past medical history of hypertension, rheumatoid arthritis, COPD, hyperlipidemia who comes to the ER for evaluation of her increased blood pressure. Patient states that her daughter recently gave so she has been helping her out to take care of the baby. Patient states that she felt a little off today with some lightheadedness and some chest pain. When patient arrived to the ER her blood pressure was high with systolic blood pressure in 200s. Patient received IV hydralazine with some improvement in the blood pressure. Patient was later also given oral amlodipine. Troponin was checked which was negative. Rest of the labs were unremarkable except for some kidney dysfunction. Patient states that she has been eating and drinking just fine. Patient states that her blood pressure has been well controlled with hydrochlorothiazide but it seems like for last 2 days her blood pressure has been on the higher side. Patient states that she has been tried on other antihypertensive pills but all of them make her feel sick and only hydrochlorothiazide is the one she is able to tolerate. Patient supposedly was started on medications for hyper lipidemia but she did not want to take any meds because she feels like she will feel sick if she takes them. Patient states that she is extremely sensitive to steroids and gets really sick when she takes them. Patient denies any palpitations any nausea, vomiting, abdominal pain, diarrhea. Patient did complain of some headache after she received hydralazine, she also felt a " little foggy". States that her urine smells very bad and thinks she has a UTI. Patient had no neurological deficits. Patient's chest pain had resolved by the time I saw her, patient was admitted for further management Diagnosis: Stroke: No - Discharge Data Discharge Date: 02/18/21 Discharge Disposition: Home, Self-Care 01 Condition: Stable - Referral to Home Health Primary Care Physician: Soto Ruano MD - Discharge Diagnosis/Problem(s) (1) DM type 2 (diabetes mellitus, type 2) SNOMED Code(s): 38251253 ICD Code: E11.9 - TYPE 2 DIABETES MELLITUS WITHOUT COMPLICATIONS Status: Acute (2) Chest pain SNOMED Code(s): 59432582 ICD Code: R07.9 - CHEST PAIN, UNSPECIFIED Status: Acute (3) Hyperlipidemia SNOMED Code(s): 17579650 ICD Code: E78.5 - HYPERLIPIDEMIA, UNSPECIFIED Status: Acute (4) Hypertension SNOMED Code(s): 80131546 ICD Code: I10 - ESSENTIAL (PRIMARY) HYPERTENSION Status: Acute (5) Hypertensive urgency SNOMED Code(s): 583313849 ICD Code: I16.0 - HYPERTENSIVE URGENCY Status: Acute (6) COPD (chronic obstructive pulmonary disease) SNOMED Code(s): 20275195 ICD Code: J44.9 - CHRONIC OBSTRUCTIVE PULMONARY DISEASE, UNSPECIFIED Status: Chronic Qualifiers: COPD type: unspecified COPD Qualified Code(s): J44.9 - Chronic obstructive pulmonary disease, unspecified - Patient Summary/Data Hospital Course: Admission diagnoses Chest pain Hypertensive urgency Discharge diagnoses Chest pain resolved Hypertensive urgency resolved Hyperlipidemia New onset diabetes Salima was admitted secondary to chest pain with significantly elevated blood pressures. She was treated aggressively with hydralazine as well as labetalol and started on new oral amlodipine along with her hydrochlorothiazide. Troponins were negative no EKG changes significant for ischemia. She was monitored on telemetry overnight. Chest pain resolved as blood pressure improved. She will be continued on amlodipine 10 mg daily along with HCTZ home medication. Today cholesterol panel was obtained which revealed significantly elevated cholesterol total cholesterol 272 LDL 182 triglycerides 227 HDL 45. A1c was noted to be 6.9. She reports that she was started on statin medication by her PCP Dr. Ruano but she had not started taking it. She reports she had significant side effects from any medications and has been leery of starting these. She also was counseled on diagnosis of diabetes and the need for diet management. She will be started on 500 mg of Metformin daily and will need to continue to monitor diet and exercise. She will be scheduled for stress test as an outpatient, [facility] due to COPD history and inability to tolerate treadmill stress test. Stress test obtained during her stay results returned after discharge. Left ventricular ejection fraction 60 to 65%, normal pattern of LV diastolic filling, normal right ventricular systolic function, aortic valve is structurally normal and tricuspid no evidence of mitral valve regurgitation no tricuspid valve regurgitation right ventricular systolic pressure is unable to be determined and no regional wall abnormalities noted. 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 She was encouraged to start taking her statin provided by her PCP. She is to monitor her salt intake. She will follow-up with PCP as well as Dr. Mejia cardiology. She is to return to the ER or clinic if concerns arise. - Patient Instructions Diet: Heart Healthy Diet, Diabetic Diet Activity: As Tolerated Showering/Bathing: May Shower Notify Provider of: Fever, Increased Pain, Swelling and Redness, Drainage, Nausea and/or Vomiting - Discharge Plan *PRESCRIPTION DRUG MONITORING PROGRAM REVIEWED*: Not Applicable *COPY OF PRESCRIPTION DRUG MONITORING REPORT IN PATIENT MAIKEL: Not Applicable Prescriptions/Med Rec: amLODIPine Besylate [Amlodipine Besylate] 10 mg PO DAILY #30 tablet metFORMIN [Glucophage] 500 mg PO DAILY #30 tablet Home Medications: Home Meds Albuterol Sulfate [Proair Hfa] 2 inh IH Q4HR PRN 05/02/17 [History] amLODIPine Besylate [Amlodipine Besylate] 10 mg PO DAILY #30 tablet 02/18/21 [Rx] hydroCHLOROthiazide [Hydrochlorothiazide] 25 mg PO DAILY 02/18/21 [History] metFORMIN [Glucophage] 500 mg PO DAILY #30 tablet 02/18/21 [Rx] Oxygen Therapy Mode: Room Air Patient Handouts: Type 2 Diabetes Mellitus, Diagnosis, Adult, Cardiac Nuclear Scan, Amlodipine Oral Tablets, Metformin tablets, Diabetes Mellitus and Nutrition, Adult Referrals: Ingrid Ramey MD [Physician] - 04/26/21 8:30 am Soto Ruano MD [Primary Care Provider] - 02/25/21 1:00 pm - Discharge Summary/Plan Comment DC Time >30 min.: No - Patient Data Vitals - Most Recent: Last Vital Signs Temp 97.6 F 02/18/21 08:00 Pulse 67 02/18/21 08:00 Resp 14 02/18/21 08:00 BP 121/58 L 02/18/21 09:04 Pulse Ox 94 L 02/18/21 09:52 Weight - Most Recent: 82.282 kg I&O - Last 24 hours: Intake & Output 02/17/21 02/18/21 02/18/21 22:59 06:59 14:59 Intake Total 450 Balance 450 Lab Results - Last 24 hrs: Laboratory Results - last 24 hr 02/17/21 02/17/21 02/17/21 Range/Units 17:32 17:32 20:18 WBC 12.00 H (4.0-11.0) K/uL RBC 5.04 (4.30-5.90) M/uL Hgb 14.6 (12.0-16.0) g/dL Hct 43.1 (36.0-46.0) % MCV 85.5 (80.0-98.0) fL MCH 29.0 (27.0-32.0) pg MCHC 33.9 (31.0-37.0) g/dL RDW Std Deviation 43.8 (28.0-62.0) fl RDW Coeff of Edy 14 (11.0-15.0) % Plt Count 338 (150-400) K/uL MPV 10.30 (7.40-12.00) fL Neut % (Auto) 57.5 (48.0-80.0) % Lymph % (Auto) 32.8 (16.0-40.0) % [place] % (Auto) 5.8 (0.0-15.0) % Eos % (Auto) 3.5 (0.0-7.0) % Baso % (Auto) 0.4 (0.0-1.5) % Neut # (Auto) 6.9 H (1.4-5.7) K/uL Lymph # (Auto) 3.9 H (0.6-2.4) K/uL [place] # (Auto) 0.7 (0.0-0.8) K/uL Eos # (Auto) 0.4 (0.0-0.7) K/uL Baso # (Auto) 0.1 (0.0-0.1) K/uL Nucleated RBC % 0.0 /100WBC Nucleated RBCs # 0 K/uL Sodium 139 (136-145) mmol/L Potassium 3.5 (3.5-5.1) mmol/L Chloride 100 (98-107) mmol/L Carbon Dioxide 25.6 (21.0-32.0) mmol/L BUN 21 H (7.0-18.0) mg/dL Creatinine 1.6 H (0.6-1.0) mg/dL Est Cr Clr Drug Dosing 26.62 mL/min Estimated GFR (MDRD) 32.1 ml/min Glucose 146 H (74-106) mg/dL Hemoglobin A1c (4.5 - 6.2) % Calcium 8.9 (8.5-10.1) mg/dL Phosphorus (2.6-4.7) mg/dL Magnesium 1.9 (1.8-2.4) mg/dL Total Bilirubin 0.3 (0.2-1.0) mg/dL AST 17 (15-37) IU/L ALT 26 (14-63) IU/L Alkaline Phosphatase 120 H (46-116) U/L Creatine Kinase 57 (26-308) U/L Troponin I < 0.050 < 0.050 (0.000-0.056) ng/mL Total Protein 8.8 H (6.4-8.2) g/dL Albumin 3.7 (3.4-5.0) g/dL Globulin 5.1 H (2.6-4.0) g/dL Albumin/Globulin Ratio 0.7 L (0.9-1.6) Triglycerides (0-200) mg/dL Cholesterol (50-200) mg/dL LDL Cholesterol, Calc (60-180) mg/dL VLDL Cholesterol (5-55) mg/dL HDL Cholesterol (40-60) mg/dL Cholesterol/HDL Ratio (3.3-6.0) Lipase 200 (73-393) U/L TSH 3rd Generation (0.36-3.74) uIU/mL Urine Color Urine Appearance Urine pH (5.0-8.0) Ur Specific [place] (1.001-1.035) Urine Protein (NEGATIVE) mg/dL Urine Glucose (UA) (NEGATIVE) mg/dL Urine Ketones (NEGATIVE) mg/dL Urine Occult Blood (NEGATIVE) Urine Nitrite (NEGATIVE) Urine Bilirubin (NEGATIVE) Urine Urobilinogen (<2.0) EU/dL Ur Leukocyte Esterase (NEGATIVE) Urine RBC (0-2/HPF) Urine WBC (0-5/HPF) Ur Epithelial Cells (NONE-FEW) Urine Bacteria (NEGATIVE) SARS-CoV-2 RNA (ESTHELA) (NEGATIVE) 02/17/21 02/17/21 02/18/21 Range/Units 20:20 23:40 00:05 WBC (4.0-11.0) K/uL RBC (4.30-5.90) M/uL Hgb (12.0-16.0) g/dL Hct (36.0-46.0) % MCV (80.0-98.0) fL MCH (27.0-32.0) pg MCHC (31.0-37.0) g/dL RDW Std Deviation (28.0-62.0) fl RDW Coeff of Edy (11.0-15.0) % Plt Count (150-400) K/uL MPV (7.40-12.00) fL Neut % (Auto) (48.0-80.0) % Lymph % (Auto) (16.0-40.0) % [place] % (Auto) (0.0-15.0) % Eos % (Auto) (0.0-7.0) % Baso % (Auto) (0.0-1.5) % Neut # (Auto) (1.4-5.7) K/uL Lymph # (Auto) (0.6-2.4) K/uL [place] # (Auto) (0.0-0.8) K/uL Eos # (Auto) (0.0-0.7) K/uL Baso # (Auto) (0.0-0.1) K/uL Nucleated RBC % /100WBC Nucleated RBCs # K/uL Sodium (136-145) mmol/L Potassium (3.5-5.1) mmol/L Chloride (98-107) mmol/L Carbon Dioxide (21.0-32.0) mmol/L BUN (7.0-18.0) mg/dL Creatinine (0.6-1.0) mg/dL Est Cr Clr Drug Dosing mL/min Estimated GFR (MDRD) ml/min Glucose (74-106) mg/dL Hemoglobin A1c (4.5 - 6.2) % Calcium (8.5-10.1) mg/dL Phosphorus (2.6-4.7) mg/dL Magnesium (1.8-2.4) mg/dL Total Bilirubin (0.2-1.0) mg/dL AST (15-37) IU/L ALT (14-63) IU/L Alkaline Phosphatase (46-116) U/L Creatine Kinase (26-308) U/L Troponin I < 0.050 (0.000-0.056) ng/mL Total Protein (6.4-8.2) g/dL Albumin (3.4-5.0) g/dL Globulin (2.6-4.0) g/dL Albumin/Globulin Ratio (0.9-1.6) Triglycerides (0-200) mg/dL Cholesterol (50-200) mg/dL LDL Cholesterol, Calc (60-180) mg/dL VLDL Cholesterol (5-55) mg/dL HDL Cholesterol (40-60) mg/dL Cholesterol/HDL Ratio (3.3-6.0) Lipase (73-393) U/L TSH 3rd Generation (0.36-3.74) uIU/mL Urine Color YELLOW Urine Appearance SLT CLOUDY Urine pH 7.0 (5.0-8.0) Ur Specific [place] 1.010 (1.001-1.035) Urine Protein NEGATIVE (NEGATIVE) mg/dL Urine Glucose (UA) NEGATIVE (NEGATIVE) mg/dL Urine Ketones NEGATIVE (NEGATIVE) mg/dL Urine Occult Blood NEGATIVE (NEGATIVE) Urine Nitrite NEGATIVE (NEGATIVE) Urine Bilirubin NEGATIVE (NEGATIVE) Urine Urobilinogen 0.2 (<2.0) EU/dL Ur Leukocyte Esterase TRACE H (NEGATIVE) Urine RBC 0-1 (0-2/HPF) Urine WBC 0-3 (0-5/HPF) Ur Epithelial Cells RARE (NONE-FEW) Urine Bacteria FEW (NEGATIVE) SARS-CoV-2 RNA (ESTHELA) NEGATIVE (NEGATIVE) 02/18/21 02/18/21 02/18/21 Range/Units 06:00 06:00 06:00 WBC 9.90 (4.0-11.0) K/uL RBC 4.52 (4.30-5.90) M/uL Hgb 13.2 (12.0-16.0) g/dL Hct 38.9 (36.0-46.0) % MCV 86.1 (80.0-98.0) fL MCH 29.2 (27.0-32.0) pg MCHC 33.9 (31.0-37.0) g/dL RDW Std Deviation 44.6 (28.0-62.0) fl RDW Coeff of Edy 14 (11.0-15.0) % Plt Count 291 (150-400) K/uL MPV 10.10 (7.40-12.00) fL Neut % (Auto) 59.2 (48.0-80.0) % Lymph % (Auto) 29.6 (16.0-40.0) % [place] % (Auto) 7.1 (0.0-15.0) % Eos % (Auto) 3.5 (0.0-7.0) % Baso % (Auto) 0.6 (0.0-1.5) % Neut # (Auto) 5.9 H (1.4-5.7) K/uL Lymph # (Auto) 2.9 H (0.6-2.4) K/uL [place] # (Auto) 0.7 (0.0-0.8) K/uL Eos # (Auto) 0.4 (0.0-0.7) K/uL Baso # (Auto) 0.1 (0.0-0.1) K/uL Nucleated RBC % 0.0 /100WBC Nucleated RBCs # 0 K/uL Sodium 139 (136-145) mmol/L Potassium 3.8 (3.5-5.1) mmol/L Chloride 102 (98-107) mmol/L Carbon Dioxide 28.0 (21.0-32.0) mmol/L BUN 21 H (7.0-18.0) mg/dL Creatinine 1.6 H (0.6-1.0) mg/dL Est Cr Clr Drug Dosing 26.62 mL/min Estimated GFR (MDRD) 32.1 ml/min Glucose 130 H (74-106) mg/dL Hemoglobin A1c 6.9 H (4.5 - 6.2) % Calcium 8.6 (8.5-10.1) mg/dL Phosphorus 4.4 (2.6-4.7) mg/dL Magnesium 1.9 (1.8-2.4) mg/dL Total Bilirubin (0.2-1.0) mg/dL AST (15-37) IU/L ALT (14-63) IU/L Alkaline Phosphatase (46-116) U/L Creatine Kinase (26-308) U/L Troponin I (0.000-0.056) ng/mL Total Protein (6.4-8.2) g/dL Albumin (3.4-5.0) g/dL Globulin (2.6-4.0) g/dL Albumin/Globulin Ratio (0.9-1.6) Triglycerides 227 H (0-200) mg/dL Cholesterol 272 H (50-200) mg/dL LDL Cholesterol, Calc 182 H (60-180) mg/dL VLDL Cholesterol 45 (5-55) mg/dL HDL Cholesterol 45 (40-60) mg/dL Cholesterol/HDL Ratio 6.0 (3.3-6.0) Lipase (73-393) U/L TSH 3rd Generation 2.61 (0.36-3.74) uIU/mL Urine Color Urine Appearance Urine pH (5.0-8.0) Ur Specific [place] (1.001-1.035) Urine Protein (NEGATIVE) mg/dL Urine Glucose (UA) (NEGATIVE) mg/dL Urine Ketones (NEGATIVE) mg/dL Urine Occult Blood (NEGATIVE) Urine Nitrite (NEGATIVE) Urine Bilirubin (NEGATIVE) Urine Urobilinogen (<2.0) EU/dL Ur Leukocyte Esterase (NEGATIVE) Urine RBC (0-2/HPF) Urine WBC (0-5/HPF) Ur Epithelial Cells (NONE-FEW) Urine Bacteria (NEGATIVE) SARS-CoV-2 RNA (ESTHELA) (NEGATIVE) Med Orders - Current: Current Medications Acetaminophen (Acetaminophen 325 Mg Tab) 650 mg PO Q4H PRN PRN Reason: Pain (Mild 1-3)/fever Last Admin: 02/18/21 00:18 Dose: 650 mg Documented by: Albuterol/Ipratropium (Albuterol/Ipratropium 3.0-0.5 Mg/3 Ml Neb Soln) 3 ml NEB Q4HRRT PRN PRN Reason: Shortness Of Breath/wheezing Amlodipine Besylate (Amlodipine 5 Mg Tab) 10 mg PO DAILY [facility] Last Admin: 02/18/21 09:04 Dose: 10 mg Documented by: Hydrochlorothiazide (Hydrochlorothiazide 12.5 Mg Cap) 12.5 mg PO BID [facility] Last Admin: 02/18/21 09:04 Dose: 12.5 mg Documented by: Labetalol HCl (Labetalol 100 Mg/20 Ml Mdv) 20 mg IVPUSH Q4H PRN; Protocol PRN Reason: Hypertension Last Admin: 02/18/21 00:07 Dose: 20 mg Documented by: Morphine Sulfate (Morphine 2 Mg/Ml Syringe) 1 mg IVPUSH Q4H PRN PRN Reason: Pain (severe 7-10) Stop: 02/18/21 22:22 Ondansetron HCl (Ondansetron 4 Mg/2 Ml Sdv) 4 mg IVPUSH Q4H PRN PRN Reason: Nausea/Vomiting Discontinued Medications Amlodipine Besylate (Amlodipine 5 Mg Tab) 10 mg PO ONETIME ONE Stop: 02/17/21 20:11 Last Admin: 02/17/21 20:28 Dose: 10 mg Documented by: Hydralazine HCl (Hydralazine 20 Mg/Ml Sdv) 5 mg IVPUSH ONETIME ONE Stop: 02/17/21 17:50 Last Admin: 02/17/21 18:15 Dose: 5 mg Documented by:
--- NOTE | 2021-02-19 12:58 | ECHO ---
EXAM DATE: 02/17/21 PATIENT'S AGE: 70 The ECHO report has been scanned into [employer] and can be seen in this patient's EMR (Electronic Medical Record) under the REPORTS section. The report has also been scanned into PACS. MICKEY
== END 2021-02-18 13:42 | disposition home or self-care (01) ==
LOC: MW.ED 17:21 → MW.MS 21:02
PROVIDERS: ADMIT Student in an Organized Health Care Education/Training Program; ATTEND Student in an Organized Health Care Education/Training Program
DX: I16.0 Hypertensive urgency (principal); R07.9 Chest pain, unspecified; E11.9 Type 2 diabetes mellitus without complications; E78.5 Hyperlipidemia, unspecified; J44.9 Chronic obstructive pulmonary disease, unspecified; M06.9 Rheumatoid arthritis, unspecified; E66.9 Obesity, unspecified; Z68.33 Body mass index [BMI] 33.0-33.9, adult; Z20.822 Contact with and (suspected) exposure to COVID-19; Z91.09 Other allergy status, other than to drugs and biological substances; Z87.891 Personal history of nicotine dependence
CPT/HCPCS: 36415; 70450; 71046; 80048; 80053; 80061; 81001; 82550; 83036; 83690; 83735; 84100; 84443; 84484; 85025; 87086; 93005; 93306; A9270; J0360; J3490; U0002; 93010; 96374; 96375; 99284; 99285-25; G0378

== ENCOUNTER 2023-06-12 13:51 | Emergency (ER) | payer MEDICARE, BC ==
[2023-06-12 14:49] LABS: BASOPHILS PERCENT AUTO 0.3 % (0.0-1.5); EOSINOPHILS ABSOLUTE AUTO 0.3 K/uL (0.0-0.7); EOSINOPHILS PERCENT AUTO 2.8 % (0.0-7.0); HEMATOCRIT 43.5 % (36.0-46.0); LYMPHOCYTES ABSOLUTE AUTO 2.1 K/uL (0.6-2.4); LYMPHOCYTES PERCENT AUTO 21.8 % (16.0-40.0); MEAN CORPUSCULAR HEMOGLOBIN 28.8 pg (27.0-32.0); MEAN CORPUSCULAR HGB CONC 34.5 g/dL (31.0-37.0); MEAN CORPUSCULAR VOLUME 83.5 fL (80.0-98.0); MONOCYTES ABSOLUTE AUTO 0.7 K/uL (0.0-0.8); MONOCYTES PERCENT AUTO 7.3 % (0.0-15.0); NEUTROPHILS ABSOLUTE AUTO 6.6 K/uL (1.4-5.7); NEUTROPHILS PERCENT AUTO 67.8 % (48.0-80.0); NRBC ABSOLUTE 0 K/uL; RED BLOOD CELL COUNT 5.21 M/uL (4.30-5.90); WHITE BLOOD CELL COUNT,WBC 9.71 K/uL (4.0-11.0)
[2023-06-12 14:57] LABS: PLATELET COUNT,PLT 222 K/uL (150-400)
[2023-06-12] MEDS ORDERED: Meclizine 25 MG Tab PO ONE (14:57)
[2023-06-12] MEDS ORDERED: Acetaminophen 325 MG Tab PO ONE (14:57)
[2023-06-12] MEDS ORDERED: Lactated Ringers 1,000 ML IV SCH (15:00)
[2023-06-12 15:13] LABS: A/G RATIO 0.7 (0.9-1.6); ALBUMIN 3.3 g/dL (3.4-5.0); BILIRUBIN TOTAL 0.3 mg/dL (0.2-1.0); CALCIUM 9.4 mg/dL (8.5-10.1); CARBON DIOXIDE,CO2 26.7 mmol/L (21.0-32.0); CREATININE 1.3 mg/dL (0.6-1.0); EST CRCL DRUG DOSING (CG) 31.85 mL/min; MAGNESIUM 2.1 mg/dL (1.8-2.4); POTASSIUM,K 3.6 mmol/L (3.5-5.1); PROTEIN TOTAL,TP 8.3 g/dL (6.4-8.2)
[2023-06-12 15:56] LABS: BILIRUBIN,URINE NEGATIVE (NEGATIVE); COLOR,URINE YELLOW; GLUCOSE,URINE NEGATIVE (NEGATIVE); KETONES,URINE NEGATIVE (NEGATIVE); LEUKOCYTE ESTERASE,URINE SMALL (NEGATIVE); NITRITE,URINE NEGATIVE (NEGATIVE); OCCULT BLOOD,URINE NEGATIVE (NEGATIVE); PROTEIN,URINE NEGATIVE (NEGATIVE); UROBILINOGEN,URINE 0.2 EU/dL (<2.0)
[2023-06-12 16:07] LABS: APPEARANCE,URINE HAZY
[2023-06-12 16:08] LABS: EPITHELIAL CELLS,URINE FEW (NONE-FEW); RBC,URINE 0-2 (0-2/HPF)
[2023-06-12 16:09] LABS: BACTERIA,URINE FEW (NEGATIVE)
[2023-06-12] MEDS ORDERED: Iopamidol 755 Mg/ML 100 ML Bottle IVPUSH ONE (17:19)
[2023-06-12 19:07] VITALS: BP 170/60; PULSE 64
== END 2023-06-12 19:05 | disposition home or self-care (01) ==
LOC: MW.ED 13:51
DX: R42 Dizziness and giddiness (principal); I10 Essential (primary) hypertension; J44.9 Chronic obstructive pulmonary disease, unspecified; E66.9 Obesity, unspecified; Z20.822 Contact with and (suspected) exposure to COVID-19; Z79.899 Other long term (current) drug therapy; Z91.048 Other nonmedicinal substance allergy status; Z68.29 Body mass index [BMI] 29.0-29.9, adult
CPT/HCPCS: 36415; 70450; 70496; 70498; 71045; 80053; 81001; 83690; 83735; 84484; 85025; 87086; 93005; 96360; 99284; J7120; Q9967; U0002; 93010; 99283

== ENCOUNTER 2024-05-31 14:14 | Emergency (ER) | payer MEDICARE, BC ==
[2024-05-31] MEDS: Albuterol/Ipratropium 3.0-0.5 MG/3 ML Neb Soln NEB STA (15:03)
[2024-05-31] MEDS: Albuterol 0.083% 2.5 MG/3 ML Neb Soln NEB STA (15:03)
[2024-05-31] MEDS: Magnesium Sulfate/Water 2 GM in Premix Bag 1 BAG IV STA (15:03)
[2024-05-31] MEDS: methylPREDNISolone Sodium Succinate 125 MG/2 ML SDV IVPUSH STA (15:04)
[2024-05-31 15:40] LABS: BASOPHILS ABSOLUTE AUTO 0.08 K/uL (0.00-0.20); BASOPHILS PERCENT AUTO 0.7 % (0.0-1.0); EOSINOPHILS ABSOLUTE AUTO 0.27 K/uL (0.00-0.45); EOSINOPHILS PERCENT AUTO 2.3 % (0.0-6.0); HEMATOCRIT 44.5 % (37.0-47.0); HEMOGLOBIN 15.3 g/dL (12.0-16.0); IMMATURE GRAN ABSOLUTE AUTO 0.03 K/uL (0.00-0.05); IMMATURE GRAN PERCENT AUTO 0.3 % (0.0-0.4); LYMPHOCYTES PERCENT AUTO 28.4 % (24.0-44.0); MEAN CORPUSCULAR HEMOGLOBIN 28.7 pg (28.0-32.0); MEAN CORPUSCULAR HGB CONC 34.4 g/dL (32.0-36.0); MEAN CORPUSCULAR VOLUME 83.5 fL (83.0-99.0); MEAN PLATELET VOLUME 9.4 fL (9.4-12.3); MONOCYTES ABSOLUTE AUTO 0.88 K/uL (0.00-0.80); MONOCYTES PERCENT AUTO 7.4 % (0.0-8.0); NEUTROPHILS PERCENT AUTO 60.9 % (41.0-71.0); PLATELET COUNT,PLT 311 K/uL (150-400); RED BLOOD CELL COUNT 5.33 M/uL (4.10-5.30); WHITE BLOOD CELL COUNT,WBC 11.96 K/uL (3.9-11.3)
[2024-05-31 15:41] LABS: PH,VENOUS 7.44 (7.31-7.41)
[2024-05-31 16:07] LABS: INR 0.98 (0.86-1.11); PTT,PARTIAL THROMBOPLSTIN TIME 25.6 SEC (23.9-30.7)
[2024-05-31 16:08] LABS: A/G RATIO 0.7 (0.9-1.6); ALBUMIN 3.4 g/dL (3.4-5.0); BILIRUBIN TOTAL 0.5 mg/dL (0.2-1.0); CALCIUM 10.2 mg/dL (8.5-10.1); CARBON DIOXIDE,CO2 27.3 mmol/L (21.0-32.0); CREATININE 1.4 mg/dL (0.6-1.0); EST CRCL DRUG DOSING (CG) 33.16 mL/min; POTASSIUM,K 3.1 mmol/L (3.5-5.1); PROTEIN TOTAL,TP 8.3 g/dL (6.4-8.2)
[2024-05-31 17:57] VITALS: BP 146/68; PULSE 72
== END 2024-05-31 18:00 | disposition home or self-care (01) ==
LOC: MW.ED 14:14
DX: J44.1 Chronic obstructive pulmonary disease with (acute) exacerbation (principal); I10 Essential (primary) hypertension; E11.9 Type 2 diabetes mellitus without complications; Z79.899 Other long term (current) drug therapy; Z79.2 Long term (current) use of antibiotics; Z91.048 Other nonmedicinal substance allergy status; Z75.8 Other problems related to medical facilities and other health care
CPT/HCPCS: 36415; 71046; 80053; 82803; 83690; 84484; 85025; 85610; 85730; 93005; 96365; 99285; J3475; 93010; 99284; J7620-GY

== ENCOUNTER 2025-09-13 09:35 | Day surgery (SDC) | payer MEDICARE, BC ==
[2025-09-13] MEDS: Lactated Ringers 1,000 ML IV SCH (10:12)
[2025-09-13] MEDS ORDERED: Propofol 200 MG/20 ML SDV ONE (11:07)
[2025-09-13 13:55] VITALS: BP 140/61; PULSE 59
== END 2025-09-13 13:15 | disposition home or self-care (01) ==
LOC: MW.SDS 09:35
PROVIDERS: ATTEND Surgery
DX: K64.8 Other hemorrhoids (principal); K57.30 Diverticulosis of large intestine without perforation or abscess without bleeding; E78.00 Pure hypercholesterolemia, unspecified; J44.9 Chronic obstructive pulmonary disease, unspecified; E11.22 Type 2 diabetes mellitus with diabetic chronic kidney disease; I12.9 Hypertensive chronic kidney disease with stage 1 through stage 4 chronic kidney disease, or unspecified chronic kidney disease; N18.30 Chronic kidney disease, stage 3 unspecified; Z88.8 Allergy status to other drugs, medicaments and biological substances; Z79.899 Other long term (current) drug therapy
CPT/HCPCS: 45378; 93005; J2003; J2704; J7120; 00811; 99100